=== PATIENT | male | born 1975 | race African-American/Black ===

== ENCOUNTER 2019-09-11 15:24 | Observation (INO) | payer OTHER, SELFPAY ==
[2019-09-11] VITALS (22 sets, daily range): BP systolic 124–168; BP diastolic 71–125; PULSE 77–121; RESP 12–22; TEMP 36.2–37.6; O2SAT 92–99; BMI 40.0
--- NOTE | ~2019-09-11 | XR_ITS ---
EXAMINATION: XR chest 2V DATE: 09/11/2019 17:00 INDICATION: Hypertension TECHNIQUE: PA and lateral views of the chest are obtained. COMPARISON: None available FINDINGS: The lung volumes are low. No acute airspace opacities are identified. There is no pleural e ffusion or pneumothorax. The cardiomediastinal silhouette is normal. There is mild thoracic spondylos is. IMPRESSION: 1. No acute cardiopulmonary abnormality. Reviewed, dictated and finalized at location A.
[2019-09-11 15:44] LABS: Glucose Point of Care > 500 (65-105)
[2019-09-11 15:44] LABS: Glucose Point of Care > 500 (65-105)
--- NOTE | 2019-09-11 15:45 | ECG_ITS ---
Measurements Intervals [place] Rate: 110 P: 60 MT: 160 QRS: 16 QRSD: 86 T: 7 QT: 299 QTc: 405 Interpretive Statements SINUS TACHYCARDIA DELAYED PRECORDIAL R/S TRANSITION ABNORMAL ECG Electronically Signed On 09-11-2019 16:40:42 CDT by Woody Newton D.O.
[2019-09-11 15:55] LABS: Basophils Absolute Auto 0.1 K/mm3 (0.0-0.1); Basophils Percent Auto 0.8 % (0.2-1.2); Eosinophils Absolute Auto 0.1 K/mm3 (0-0.3); Eosinophils Percent Auto 1.7 % (0-4.4); Hematocrit 46.4 % (42.0-52.0); Hemoglobin 15.9 g/dL (14.0-18.0); Immature Granulocyte Absolute 0.04 K/mm3 (0.00-0.031); Immature Granulocyte Percent A 0.6 % (0-0.5); Lymphocytes Absolute Auto 1.91 K/mm3 (0.9-3.2); Lymphocytes Percent Auto 30.2 % (18.3-44.2); Mean Corpuscular HGB Conc 34.3 g/dl (32-36); Mean Corpuscular Hemoglobin 28.5 pg (26-34); Mean Corpuscular Volume 83.2 fl (80-100); Mean Platelet Volume 12.1 fl (7.4-10.4); Monocytes Absolute Auto 0.5 K/mm3 (0.1-0.6); Monocytes Percent Auto 7.7 % (2.6-8.5); Neutrophils Absolute Auto 3.7 K/mm3 (1.3-6.7); Platelet Count Result 276 k/mm3 (150-375); Red Blood Count 5.58 M/mm3 (4.6-6.20); Red Cell Distribution Width 13.7 % (11.5-14.5); White Blood Count 6.3 K/mm3 (4.5-10.0)
[2019-09-11 16:14] LABS: Beta-Hydroxybutyrate/Acetoacetate 1.16 mmol/L (0.02-0.27)
[2019-09-11 16:16] LABS: Add Urine Microscopic? YES; Appearance Urine Clear (Clear); Bilirubin Urine Negative (Negative); Blood Urine Negative (Negative); Color Urine Colorless (Yellow); Glucose Urine UA 3+ mg/dL (Negative); Ketones Urine 1+ mg/dL (Negative); Leukocyte Esterase Ur Negative LEU/UL (Negative); Mucus Urine Rare /lpf; Nitrate Urine Negative (Negative); Protein Urine Negative (Negative); RBC Urine 0-2 /hpf (0-2); Squamous Epithelial Cell Urine Rare /hpf (Few); Urobilinogen Urine Negative mg/dL (<2.0); WBC Urine 0-3 /hpf
[2019-09-11 16:18] LABS: Alanine Aminotransferase 174 U/L (4-50); Albumin Level 4.6 g/dL (3.5-5.1); Alkaline Phosphatase 111 U/L (38-126); Aspartate Amino Transferase 49 U/L (17-59); Bilirubin,Total 0.8 mg/dL (0.2-1.3); Blood Urea Nitrogen 20 mg/dL (9-20); Calcium 9.4 mg/dL (8.4-10.2); Carbon Dioxide 22 mmol/L (22-30); Chloride 95 mmol/L (98-107); Estimated CRCL calculation 108 ml/min; Estimated Glomerular Filt Rate > 60; Glucose 661 mg/dL (75-110); Phosphorus 3.9 mg/dL (2.5-4.5); Potassium 4.9 mmol/L (3.4-5.0); Sodium 129 mmol/L (137-145)
[2019-09-11 16:18] LABS: Specific Grav Ur 1.033 (1.001-1.035)
--- NOTE | 2019-09-11 16:22 | PC.NURSE ---
EDP aware of Pt. critically high blood glucose. Per EDP via verbal order readback give Pt. 1L of normal saline at 999mls/hr for high blood glucose and tachycardia.
[2019-09-11] MEDS: SODIUM CHLORIDE 0.9% IV 1,000 ML 999 ML (16:24)
--- NOTE | 2019-09-11 16:39 | ED.GENADULT ---
HPI - General Adult General Chief complaint: Recheck/Abnormal Lab/Rx Stated complaint: weakness, not feeling well for 2 weeks Time Seen by Provider: 09/11/19 16:22 Source: patient Mode of arrival: ambulatory Limitations: no limitations History of Present Illness HPI narrative: This patient is a 44 year old male with history of hypertension who presents for evaluation of fatigue. His states 2- 3 weeks ago he fell into [facility] and he may have aspirated some water. He was evaluated at the [facility] and he was placed on steroids for aspiration. He states he has not felt well since then. His states he developed sore throat and thrush. He was started on nystatin and his thrush/sore throat have improved. His states then he noticed that he was feeling more fatigue. He was tested for COVID on Sunday and he was found to be negative yesterday. He was started on a z sonja and he initially felt better . Today while he was in store walking around he states he just has no energy. He feels lightheaded. He also reports increased thirst and frequent urination. He has nausea but no chest pain, abodminal pain , vomiting or diarrhea. Related Data Home Medications Medication Instructions Recorded Confirmed alendronate-vitamin D3 tablet PO 09/11/19 amlodipine 5 mg PO DAILY 09/11/19 bupropion HCl 100 mg PO BID 09/11/19 cetirizine [Zyrtec] 10 mg PO DAILY 09/11/19 famotidine [Pepcid] 20 mg PO BID 09/11/19 trazodone 100 mg PO HS 09/11/19 Allergies Allergy/AdvReac Type Severity Reaction Status Date / Time No Known Allergies Allergy Verified 09/11/19 16:06 Review of Systems Review of Systems: All systems reviewed & are unremarkable except as noted in HPI and below Constitutional: Constitutional: Denies chills, Denies fever(s) and Reports weakness ENT: Reports dizziness and Reports sore throat Cardiovascular: Cardiovascular: Denies chest pain and Denies radiating jaw, neck or arm pain Respiratory: Respiratory: Reports cough, Denies dyspnea and Denies wheezing Gastrointestinal: Gastrointestinal: Denies abdominal pain, Denies diarrhea and Denies vomiting Genitourinary: Genitourinary: Reports urinary frequency Neurologic: Reports weakness Endocrine: Endocrine: Reports polydipsia and Reports polyuria PMFSH Past Medical History Medical History (Updated 09/11/19 @ 19:19 by Arabella Rock MD) Hypertension Sleep apnea Surgical History Surgical History (Updated 09/11/19 @ 16:40 by Arabella Rock MD) No pertinent past surgical history Social History Social History (Updated 09/11/19 @ 16:41 by Arabella Rock MD) Smoking status: Never smoker Living arrangements: with family Occupation/Education: occupation 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 HEAD: Normocephalic, atraumatic EYES: PERRLA and EOMI, conjunctiva clear without discharge EARS: TM's clear bilaterally without erythema or dullness NOSE: Nares clear, no rhinorrhea or epistaxis THROAT:Mucous membranes moist, Oropharynx normal without erythema, exudate, peritonsillar swelling or fluctuance, edematous uvula NECK: Supple, without lymphadenopathy or mass RESPIRATORY: No respiratory distress, Airway patent, Respirations non-labored, Clear to auscultation without rales, rhonchi or wheeze HEART: tachycardia with regular rhythm No murmur heard. Normal peripheral pulses. ABDOMEN: Soft, nontender, nondistended, normal active bowel sounds. No masses. No rebound or guarding, No organomegaly. EXTREMITIES: No edema, normal strength with full range of motion. SKIN: Warm, dry, normal color without rash NEURO: Alert and oriented x3. CN 2-12 grossly intact. No focal deficits. PSYCH: Normal mood and affect. Course Consultations Consultati
[2019-09-11 17:14] LABS: Alveolar/Arterial O2 Gradient 31.9 mmHg; Fractional Inspired Oxygen 21 %; HCO3 ABG 20.7 mEq/l (22.0-26.0); Oxygen Content ABG 20.6 %vol (16.0-22.0); Oxygen Saturation ABG 94.4 % (95.0-100.0); Oxyhemoglobin 93.3 % THb (90.0-100.0); PO2 ABG 73.5 mmHg (80.0-100.0); Total Hemoglobin 15.7 g/dL (12.0-18.0); pH ABG 7.366 (7.350-7.450)
[2019-09-11 17:15] LABS: Device ROOM AIR; Modified Allen's Test Pass; Site Drawn LEFT RADIAL
[2019-09-11] MEDS: SODIUM CHLORIDE 0.9% IV 1,000 ML 999 ML IV CONT (17:30)
[2019-09-11] MEDS: INSULIN HUMAN REGULAR (*BKC) 100 UNITS/ML 10 UNITS SUB-Q (17:47)
[2019-09-11 18:06] LABS: Glucose Point of Care 389 (65-105)
[2019-09-11 18:54] LABS: Glucose Point of Care 396 (65-105)
--- NOTE | 2019-09-11 19:41 | PC.NURSE ---
disposition note made by Javi was made in error; report was called at that time; inpt. room was not clean, pt. leaving dept. at this time.
[2019-09-11 20:11] LABS: Glucose Point of Care 371 (65-105)
[2019-09-11] MEDS: FAMOTIDINE 20 MG/2 ML VIAL IV PUSH (20:14)
[2019-09-11] MEDS: SODIUM CHLORIDE 0.9% IV 1,000 ML 125 ML IV CONT (20:15)
--- NOTE | 2019-09-11 20:42 | ADMIMU ---
This patient, Harsh Taylor Jr., was admitted to IMU status, and placed in IMU Room 200-01 on 09/11/19 at 1955. Patient/family oriented to hospital policies and general routines including ID bracelet, bed and alarms, visiting hours, pain management, procedures, bathroom and other care routines, personal items, smoking policy, room service/diet, and visiting hours. Valuables list has been completed. Information on how to activate the Rapid Response Team has been discussed. Patient/Family are encouraged to report perceived risks to care and to ask questions if they do not understand what they are told or what they should do.
[2019-09-11 21:33] LABS: Glucose Point of Care 295 (65-105)
[2019-09-11] MEDS: INSULIN GLARGINE (*BKC) 100 UNITS/ML 10 UNITS SUB-Q (21:33)
--- NOTE | 2019-09-11 21:34 | PM.IMHP ---
H&P: HPI History of Present Illness Chief complaint: hyperglycemia/dehydration Narrative: This is a pleasant 44 year old male with known HTN who presented to the hospital today with a complaint of fatigue and generalized weakness. The patient has had increased thirst, urination, and hunger over the past two weeks. The patient was recently on antibiotics and steroids after he had went into a [facility] about 3 weeks ago and aspirated some water. He developed thrush and a sore throat afterwards. He was recently tested for COVID this past week and was found to be negative. The patient was also treated with nystatin and his thrush has resolved. Today when he got back from the grocery store with this , he was so tired that he told her he simply wanted to come to the hospital. He states that his respiratory symptoms and URI symptoms have completely resolved. In the ER tonight the patient was found to have a blood glucose of 661 mg/dl. He did not have an elevated anion gap. The patient admits to me that he has had an increase in weight over the past year which he attributes to working and not exercising or eating right. Tonight he denies any other symptoms such as fever, cough, shortness of breath, headache, blurry vision, chest pain, abdominal pain, dysuria, hematuria, nausea, vomiting, diarrhea, or rectal bleeding. Review of Systems Review of Systems: All systems reviewed & are unremarkable except as noted in HPI and below PMFSH Past Medical History Medical History (Updated 09/11/19 @ 21:51 by Magdiel Jackson MD) Hypertension Sleep apnea Surgical History Surgical History (Updated 09/11/19 @ 21:53 by Magdiel Jackson MD) Hx of chest tube placement No pertinent past surgical history Family History Family History Father Chronic obstructive pulmonary disease Mother Hypertension Diabetes mellitus Social History Social History Smoking status: Light tobacco smoker Tobacco type: cigars Second hand tobacco smoke exposure: Yes Additional smoking assessment comments: 1-2 a week but not consistant Alcohol intake: never Substance use: never Substance use type: does not use Living arrangements: with family Occupation/Education: occupation 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 Gender identity (if verbalized by the patient): Male Spiritual care concerns: No Meds Home Medications and Allergies Home Medications Medication Instructions Recorded Confirmed Type alendronate-vitamin D3 1 tablet PO WEEKLY 09/11/19 09/11/19 History amlodipine 5 mg PO DAILY 09/11/19 09/11/19 History bupropion HCl 100 mg PO DAILY 09/11/19 09/11/19 History cetirizine [Zyrtec] 10 mg PO DAILY 09/11/19 09/11/19 History famotidine [Pepcid] 20 mg PO BID 09/11/19 09/11/19 History Allergies Allergy/AdvReac Type Severity Reaction Status Date / Time No Known Allergies Allergy Verified 09/11/19 16:06 Vital Signs Vital Signs - 24 hr 09/11/19 15:37 09/11/19 15:40 09/11/19 15:45 Temperature 37.6 C Pulse Rate 114 H 110 H 112 H Respiratory Rate 20 20 12 Blood Pressure 168/111 H Pulse Oximetry 97 98 93 09/11/19 15:54 09/11/19 16:04 09/11/19 16:15 Temperature Pulse Rate 111 H 121 H Respiratory Rate 20 16 12 Blood Pressure Pulse Oximetry 99 98 94 09/11/19 16:40 09/11/19 17:04 09/11/19 17:26 Temperature Pulse Rate 109 H 103 H 98 Respiratory Rate 15 13 14 Blood Pressure Pulse Oximetry 95 98 97 09/11/19 17:30 09/11/19 17:51 09/11/19 18:00 Temperature Pulse Rate 97 104 H 97 Respiratory Rate 15 21 H 17 Blood Pressure Pulse Oximetry 98 97 96 09/11/19 18:01 09/11/19 18:27 09/11/19 18:42 Temperature Pulse Rate 97 96 Respiratory Rate 14 14 Blood Pressure 139/125 H Pulse Oximetry 94 96 09/11/19 18:45 09/11/19 20:00 Temperature 36.9
[2019-09-11] MEDS: INSULIN ASPART (*BKC) 100 UNITS/ML SUB-Q (21:47)
[2019-09-11 23:58] LABS: Glucose Point of Care 374 (65-105)
[2019-09-12] VITALS (9 sets, daily range): BP systolic 131–140; BP diastolic 84–94; PULSE 79–102; RESP 16–21; TEMP 35.7–36.4; O2SAT 97–100
[2019-09-12 04:55] LABS: Basophils Absolute Auto 0.1 K/mm3 (0.0-0.1); Basophils Percent Auto 0.9 % (0.2-1.2); Eosinophils Absolute Auto 0.1 K/mm3 (0-0.3); Eosinophils Percent Auto 2.5 % (0-4.4); Hematocrit 42.2 % (42.0-52.0); Hemoglobin 14.2 g/dL (14.0-18.0); Immature Granulocyte Absolute 0.03 K/mm3 (0.00-0.031); Immature Granulocyte Percent A 0.6 % (0-0.5); Lymphocytes Absolute Auto 2.22 K/mm3 (0.9-3.2); Lymphocytes Percent Auto 41.9 % (18.3-44.2); Mean Corpuscular HGB Conc 33.6 g/dl (32-36); Mean Corpuscular Volume 83.2 fl (80-100); Monocytes Absolute Auto 0.4 K/mm3 (0.1-0.6); Monocytes Percent Auto 8.1 % (2.6-8.5); Neutrophils Absolute Auto 2.4 K/mm3 (1.3-6.7); Platelet Count Result 245 k/mm3 (150-375); Red Blood Count 5.07 M/mm3 (4.6-6.20); Red Cell Distribution Width 13.6 % (11.5-14.5); White Blood Count 5.3 K/mm3 (4.5-10.0)
[2019-09-12 05:05] LABS: Hemoglobin A1C 12.8 % (<5.7)
[2019-09-12 05:10] LABS: Alanine Aminotransferase 158 U/L (4-50); Albumin Level 3.9 g/dL (3.5-5.1); Alkaline Phosphatase 85 U/L (38-126); Aspartate Amino Transferase 63 U/L (17-59); Bilirubin,Total 0.8 mg/dL (0.2-1.3); Blood Urea Nitrogen 16 mg/dL (9-20); Calcium 8.6 mg/dL (8.4-10.2); Carbon Dioxide 24 mmol/L (22-30); Chloride 106 mmol/L (98-107); Estimated CRCL calculation 122 ml/min; Estimated Glomerular Filt Rate > 60; Glucose 304 mg/dL (75-110); Sodium 137 mmol/L (137-145)
[2019-09-12 08:08] LABS: Glucose Point of Care 373 (65-105)
[2019-09-12] MEDS: INSULIN ASPART (*BKC) 100 UNITS/ML SUB-Q ×3 (08:10→16:17)
[2019-09-12] MEDS: FAMOTIDINE 20 MG/2 ML VIAL IV PUSH ×2 (08:11→20:53)
[2019-09-12] MEDS: LORATADINE 10 MG TABLET PO (08:11)
[2019-09-12] MEDS: buPROPion HCL 100 MG TABLET PO (08:11)
[2019-09-12] MEDS: AMLODIPINE BESYLATE 5 MG TABLET PO (08:11)
[2019-09-12 12:11] LABS: Glucose Point of Care 351 (65-105)
--- NOTE | 2019-09-12 12:30 | PC.NURSE ---
This patient, Harsh Taylor Jr., was transferred to [facility] on 09/12/19 at 1229. Personal belongings sent with patient.Report given to oNe. Appropriate documentation sent with patient.
--- NOTE | 2019-09-12 12:53 | PC.NURSE ---
This patient, Harsh Taylor , was received from IMU 200/01 on 09/12/19 at 1253. Personal belongings list checked and signed. Patient/family oriented to unit policies and routines
--- NOTE | 2019-09-12 15:59 | PM.IMPN ---
Progress Note: A&P Assessment and Plan (1) Acute hyperglycemia: Code(s): R73.9 - Hyperglycemia, unspecified Status: Acute Assessment and Plan: r/o New Onset diabetes mellitus - Accuchecks, SSI Coverage, Hypoglycemic protocol. Check HgbA1c. Diabetes eductator. (2) Acute dehydration: Code(s): E86.0 - Dehydration Status: Resolved Assessment and Plan: Can stop fluids, his creatinine has corrected. (3) Hyponatremia: Code(s): E87.1 - Hypo-osmolality and hyponatremia Status: Acute Assessment and Plan: Likely pseudohyponatremia from hyperglycemia. (4) H/O: HTN (hypertension): Code(s): Z86.79 - Personal history of other diseases of the circulatory system Status: Chronic Assessment and Plan: stable. Monitor blood pressure. Continue amlodipine. (5) Morbid obesity: Code(s): E66.01 - Morbid (severe) obesity due to excess calories Status: Chronic Assessment and Plan: Emphasised healthy lifestyle choices and weight loss benefits. (6) Depression: Qualifiers: Depression Type: unspecified Qualified Code(s): F32.9 - Major depressive disorder, single episode, unspecified Code(s): F32.9 - Major depressive disorder, single episode, unspecified Status: Chronic Assessment and Plan: Continue bupropion. Additional Plan Subjective Date/time seen: 09/12/19 15:59 Interval history: 4 year old male with known HTN who presented to the hospital today with a complaint of fatigue and generalized weakness. The patient has had increased thirst, urination, and hunger over the past two weeks. Pts sugars are high on admission 661, pts HBaic is 12. Long discussion about DM. And control of DM with diet exercise and insulin. Pt is agreement. Pt states he used to give his relative insulin so he is aware how to adminster insulin. Review of Systems Review of Systems: All systems reviewed & are unremarkable except as noted in HPI and below Constitutional: Constitutional: Reports fatigue and Reports lethargy Eyes: Eyes: Denies blurry vision Cardiovascular: Comments: increased thirst Respiratory: Respiratory: Denies dyspnea Gastrointestinal: Gastrointestinal: Denies no additional gastrointestinal complaints Genitourinary: Genitourinary: Reports urinary frequency Musculoskeletal: Musculoskeletal: Denies no additional musculoskeletal complaints Exam Const: General: cooperative, no acute distress, alert and awake Nutritional Appearance: obese morbidly obese Orientation/consciousness: patient oriented x3 Resp: Effort & Inspection: normal respiratory effort Auscultation: clear to auscultation bilaterally Cardio: Rate: regular rate Rhythm: regular rhythm Heart sounds: no murmurs GI: Inspection: normal to inspection Auscultation: normal bowel sounds Skin: General skin exam: normal color and no rashes or lesions noted Neuro: General: patient oriented x3 Cranial nerves: Yes CN's II-XII intact bilaterally and Yes Equal, round and reactive pupils present Speech: normal speech Motor exam (neuro): 5/5 motor strength present throughout Sensory Exam: normal sensation Extrem: General: normal to inspection and no edema Psych: Mental Status: mental status grossly normal Affect: normal affect Objective Data Vital Signs Vital Signs: Vital Signs - 24 hr 09/11/19 16:04 09/11/19 16:15 09/11/19 16:40 Temperature Pulse Rate 111 H 121 H 109 H Respiratory Rate 16 12 15 Blood Pressure Pulse Oximetry 98 94 95 09/11/19 17:04 09/11/19 17:26 09/11/19 17:30 Temperature Pulse Rate 103 H 98 97 Respiratory Rate 13 14 15 Blood Pressure Pulse Oximetry 98 97 98 09/11/19 17:51 09/11/19 18:00 09/11/19 18:01 Temperature Pulse Rate 104 H 97 Respiratory Rate 21 H 17 Blood Pressure 139/125 H Pulse Oximetry 97 96 09/11/19 18:27 09/11/19 18:42 09/11/19 18:45 Temperature
[2019-09-12 16:10] LABS: Glucose Point of Care 313 (65-105)
[2019-09-12 23:22] LABS: Glucose Point of Care 317 (65-105)
[2019-09-13 06:00] VITALS: BP 159/94; PULSE 84; RESP 20; TEMP 36.7; O2SAT 99
[2019-09-13 07:59] LABS: Glucose Point of Care 255 (65-105)
[2019-09-13] MEDS: INSULIN ASPART (*BKC) 100 UNITS/ML SUB-Q (08:20)
[2019-09-13] MEDS: FAMOTIDINE 20 MG/2 ML VIAL IV PUSH (08:23)
[2019-09-13] MEDS: LORATADINE 10 MG TABLET PO (08:23)
[2019-09-13] MEDS: AMLODIPINE BESYLATE 5 MG TABLET PO (08:23)
[2019-09-13] MEDS: buPROPion HCL 100 MG TABLET PO (08:23)
--- NOTE | 2019-09-13 08:44 | PM.DS ---
DS: Admitting Diagnosis Admitting Diagnosis Admitting Diagnosis: Hyperglycemia, unspecified DS: Discharge Diagnosis Discharge Diagnosis (1) Acute hyperglycemia: Code(s): R73.9 - Hyperglycemia, unspecified Status: Acute Assessment and Plan: r/o New Onset diabetes mellitus - Accuchecks, SSI Coverage, DM education insuloin adminstration, accuchecks monitoring pt switched to lispro as it is better covered by his insurance 6 units tid with meals. pt asked for a sick note left with out receiving it, if he needs it he can have two weeks off work from 09/11- 09/25. (2) Acute dehydration: Code(s): E86.0 - Dehydration Status: Resolved Assessment and Plan: Can stop fluids, his creatinine has corrected. (3) Hyponatremia: Code(s): E87.1 - Hypo-osmolality and hyponatremia Status: Acute Assessment and Plan: Likely pseudohyponatremia from hyperglycemia. (4) H/O: HTN (hypertension): Code(s): Z86.79 - Personal history of other diseases of the circulatory system Status: Chronic Assessment and Plan: stable. Monitor blood pressure. Continue amlodipine. (5) Morbid obesity: Code(s): E66.01 - Morbid (severe) obesity due to excess calories Status: Chronic Assessment and Plan: Emphasised healthy lifestyle choices and weight loss benefits. (6) Depression: Qualifiers: Depression Type: unspecified Qualified Code(s): F32.9 - Major depressive disorder, single episode, unspecified Code(s): F32.9 - Major depressive disorder, single episode, unspecified Status: Chronic Assessment and Plan: Continue bupropion. DS: Summary Time Spent with Patient Time attestation: Total time spent providing and/or coordinating discharge services:40 minutes on day of dischrage Exam Const: General: cooperative, no acute distress, alert and awake Nutritional Appearance: obese morbidly obese Orientation/consciousness: patient oriented x3 Resp: Effort & Inspection: normal respiratory effort Auscultation: clear to auscultation bilaterally Cardio: Rate: regular rate Rhythm: regular rhythm Heart sounds: no murmurs GI: Inspection: normal to inspection Auscultation: normal bowel sounds Skin: General skin exam: normal color and no rashes or lesions noted Neuro: General: patient oriented x3 Cranial nerves: Yes CN's II-XII intact bilaterally and Yes Equal, round and reactive pupils present Speech: normal speech Motor exam (neuro): 5/5 motor strength present throughout Sensory Exam: normal sensation Extrem: General: normal to inspection and no edema Psych: Mental Status: mental status grossly normal Affect: normal affect DS: Data Data Completed and Pending Labs on day of discharge: Labs from last 24 hours 09/13/19 09/12/19 09/12/19 07:53 20:51 16:05 POC Capillary Glucose 255 H 317 H 313 H 09/12/19 11:31 POC Capillary Glucose 351 H Discharge Plan Discharge Attending physician on discharge: Debbie Chiang Discharging Clinician: Debbie Chiang Anticipated Discharge Date/Time: 09/13/19 08:40 Patient Disposition: Home, Self-Care Activity: as tolerated Diet: diabetic Discharge Instructions: Diabetic diet sheet GLUCOMETER AND ACCUCHECK MONITORing DIET and exercise Insulin Administration Follow up [facility] jo[facility] COEL Patient Instructions: Antibiotic Form, Hypoglycemia in a Person with Diabetes (DC), Type 2 Diabetes in Adults: New Diagnosis (DC), Basic Carbohydrate Counting (DC) Stand Alone Forms: General Discharge Information Follow-up/Referrals: clarence cole [Other] Too,DANDRE Echeverria [Primary Care Provider] - Discharge Medications: New (DME) lancets [Accu-Chek Softclix Lancets] Misc See Rx Instructions .ROUTE .MEDSUPPLY Qty: 50 RF: 0 (DME) lancets [BD Ultra Fine Lancets] 33 gauge misc See Rx Instructions .ROUTE .MEDSUPPLY Qty:
[2019-09-13 09:19] LABS: Blood Urea Nitrogen 13 mg/dL (9-20); Calcium 8.6 mg/dL (8.4-10.2); Carbon Dioxide 25 mmol/L (22-30); Chloride 102 mmol/L (98-107); Estimated CRCL calculation 138 ml/min; Estimated Glomerular Filt Rate > 60; Glucose 305 mg/dL (75-110); Potassium 4.1 mmol/L (3.4-5.0); Sodium 135 mmol/L (137-145)
--- NOTE | 2019-09-13 14:36 | PC.NURSE ---
Pt called with problem having his prescriptions for Novolog, testing & administration supplies being filled by pharmacy. I spoke with the pharmacist re: the items. The transmitted script for supplies showed only a quantity of 1 for each item. Pharmacist instructed to provide supplies for 30 of each and substitute the Novolog with Lispro for [address] Chiang's order. Pharmacist confirmed that the insurance company would cover the cost of Lispro. Pt notified that he can strip picker his prescriptions now.l
== END 2019-09-13 12:12 | disposition home or self-care (01) ==
LOC: ANHED 18:10 → ANHIMU 18:57 → ANH2MED 09-12 12:30
PROVIDERS: Emergency Medicine; Family Medicine; Admitting Provider Family Medicine; Emergency Provider General Practice; PCP Nurse Practitioner Family; Visit Provider Family Medicine
DX: R73.9 Hyperglycemia, unspecified (principal); E86.0 Dehydration; E87.1 Hypo-osmolality and hyponatremia; I10 Essential (primary) hypertension; E66.01 Morbid (severe) obesity due to excess calories; Z68.41 Body mass index [BMI] 40.0-44.9, adult; F32.9 Major depressive disorder, single episode, unspecified; Z72.0 Tobacco use
CPT/HCPCS: 36415; 36600; 71046; 80048; 80053; 81001; 82010; 82805; 82948; 83036; 83735; 84100; 85025; 93005; 96361; 96374; 96376; 99285; A9270; G0378; G0379; J1815; J7030

== ENCOUNTER 2023-08-23 05:41 | Emergency (ER) | payer BC, MEDICAID, SELFPAY ==
[2023-08-23] VITALS (18 sets, daily range): BP systolic 140–240; BP diastolic 102–159; PULSE 62–90; RESP 17–33; TEMP 36.7; O2SAT 97–100
--- NOTE | ~2023-08-23 | CT_ITS ---
Non-contrast Head CT History: Headache, hypertension Technique: Axial non-contrast imaging of the brain was performed. Dose reduction technique was used on this scan by utilizing automated exposure control and iterative reconstruction technique. The dose -length product (DLP) was 681.00 mGy-cm. Findings: There is no evidence of intracranial hemorrhage, mass lesion, or acute infarct. Brain par enchyma appears normal. The ventricles and subarachnoid spaces are normal in size. The calvarium ap pears normal. There is mild left maxillary and bilateral ethmoid sinus disease. The remaining visuali zed paranasal sinuses and mastoid air cells are clear. Impression: No intracranial abnormality seen. Sinus disease, as above. Reviewed, dictated and finalized at location . Impression: No intracranial abnormality seen. Sinus disease, as above.
--- NOTE | 2023-08-23 05:53 | ECG_ITS ---
Test Date: 2023-08-23 06:04:22 Measurements Intervals [place] Rate: 59 P: 37 SD: 188 QRS: 41 QRSD: 94 T: 43 QT: 431 QTc: 430 Interpretive Statements SINUS BRADYCARDIA MODERATE VOLTAGE CRITERIA FOR LVH, CONSIDER NORMAL VARIANT [MEETS CRITERIA IN ONE OF: R(aVL), S(V1), R(V5), R(V5/V6)+S(V1)] No previous ECG available for comparison Electronically Signed On 08-23-2023 12:43:55 CDT by Ehsan Pablo M.D.
[2023-08-23] MEDS: ONDANSETRON INJ 4 MG/2 ML VIAL IV PUSH (06:06)
[2023-08-23] MEDS: SODIUM CHLORIDE 0.9% IV 1,000 ML 999 ML IV CONT (06:06)
[2023-08-23 06:07] LABS: Basophils Absolute Auto 0.1 K/mm3 (0.0-0.1); Basophils Percent Auto 0.7 % (0.2-1.2); Eosinophils Absolute Auto 0.3 K/mm3 (0-0.3); Eosinophils Percent Auto 3.3 % (0-4.4); Hematocrit 42.1 % (42.0-52.0); Hemoglobin 14.5 g/dL (14.0-18.0); Immature Granulocyte Absolute 0.03 K/mm3 (0.00-0.031); Immature Granulocyte Percent A 0.4 % (0-0.5); Lymphocytes Absolute Auto 2.37 K/mm3 (0.9-3.2); Lymphocytes Percent Auto 28.9 % (18.3-44.2); Mean Corpuscular HGB Conc 34.4 g/dl (32-36); Mean Corpuscular Hemoglobin 28.4 pg (26-34); Mean Corpuscular Volume 82.5 fl (80-100); Mean Platelet Volume 10.1 fl (7.4-10.4); Monocytes Absolute Auto 0.6 K/mm3 (0.1-0.6); Monocytes Percent Auto 6.8 % (2.6-8.5); Neutrophils Absolute Auto 4.9 K/mm3 (1.3-6.7); Neutrophils Percent Auto 59.9 % (45.5-73.1); Platelet Count Result 321 k/mm3 (150-375); Red Cell Distribution Width 13.3 % (11.5-14.5); White Blood Count 8.2 K/mm3 (4.5-10.0)
[2023-08-23 06:16] LABS: Alanine Aminotransferase 15 U/L (6-50); Albumin Level 4.6 g/dL (3.5-5.1); Alkaline Phosphatase 77 U/L (38-126); Anion Gap 9 mmol/L (4-12); Aspartate Amino Transferase 21 U/L (17-59); Bilirubin,Total 0.9 mg/dL (0.2-1.3); Blood Urea Nitrogen 10 mg/dL (9-20); Calcium 9.3 mg/dL (8.4-10.2); Carbon Dioxide 24 mmol/L (22-30); Chloride 107 mmol/L (98-107); Estimated CRCL calculation 112 ml/min; Estimated Glomerular Filt Rate > 60; Glucose 166 mg/dL (65-110); Magnesium 1.9 mg/dL (1.6-2.3); Potassium 3.6 mmol/L (3.4-5.0); Sodium 140 mmol/L (137-145)
[2023-08-23] MEDS: hydrALAZINE HCL 20 MG/ML VIAL 10 MG IV PUSH (06:21)
--- NOTE | 2023-08-23 06:23 | PC.NURSE ---
After Zofran was given patient was less restless and presents A&Ox4. Patient denies HI/SI. Patient states he is actively trying to get help for substance abuse. Patient and friend at bedside state that patient last snorted sometime yesterday and his symptoms began around 0300 today. Patient c/o N/V, headache, and his abdomen hurting him. Patient and friend also states that patient has been non-compliant with his HTN medications and has not been checking his blood pressure.
--- NOTE | 2023-08-23 06:24 | ED.GENADULT ---
HPI - General Adult General Chief complaint: Unspecified <Jordan Reaves MD - Last Filed: 08/24/23 06:10> Stated complaint: withdrawing from fentanyl <Jordan Reaves MD - Last Filed: 08/24/23 06:10> Time Seen by Provider: 08/23/23 05:59 <Jordan Reaves MD - Last Filed: 08/24/23 06:10> History of Present Illness HPI narrative: Patient is a 48-year-old male who presents to the emergency department this morning complaining of concern for sentinel withdrawal. Patient states that he last snorted fentanyl around 3:00 p.m. in the afternoon yesterday and approximately 3 hours ago at 11:00 p.m. he started to develop some severe abdominal pain, nausea and vomiting. Patient is also complaining of a severe headache. Patient's blood pressure was noted to be 240/122 mmHg in the emergency department. Patient admits that he does have a history of high blood pressure and is supposed to be on a blood pressure medication but he is noncompliant with his medication. Significant other who is present at bedside states that he does not take his blood pressure medication and patient is not even sure what medication he was prescribed, she believes it may have been clonidine. Patient states that he has gone through opiate/sentinel withdrawn and the past and states that this feels similar. He has been admitted in the hospital for this in the past as well. <Jordan Reaves MD - Last Filed: 08/24/23 06:10> Related Data Home medications: Home Medications Medication Instructions Recorded Confirmed alendronate 70 mg-cholecalciferol 1 tablet PO WEEKLY 09/11/19 09/11/19 (vitamin D3) 2,800 unit tablet amlodipine 5 mg tablet 5 mg PO DAILY 09/11/19 09/11/19 bupropion HCl 100 mg tablet 100 mg PO DAILY 09/11/19 09/11/19 cetirizine 10 mg tablet (Zyrtec) 10 mg PO DAILY 09/11/19 09/11/19 famotidine 20 mg tablet (Pepcid) 20 mg PO BID 09/11/19 09/11/19 <Jordan Reaves MD - Last Filed: 08/24/23 06:10> Allergies/adverse reactions: Allergies Allergy/AdvReac Type Severity Reaction Status Date / Time No Known Allergies Allergy Verified 11/30/21 11:59 <Jordan Reaves MD - Last Filed: 08/24/23 06:10> Review of Systems Review of Systems: All systems are reviewed and are negative unless stated otherwise in the HPI. <Jordan Reaves MD - Last Filed: 08/24/23 06:10> PMFSH Past Medical History Medical History: Medical History Hypertension Sleep apnea <Jordan Reaves MD - Last Filed: 08/24/23 06:10> Surgical History Surgical History: Surgical History Hx of chest tube placement No pertinent past surgical history <Jordan Reaves MD - Last Filed: 08/24/23 06:10> Family History Family History: Family History Father Chronic obstructive pulmonary disease Mother Hypertension Diabetes mellitus <Jordan Reaves MD - Last Filed: 08/24/23 06:10> Social History Social History: Social History Smoking status: Light tobacco smoker Tobacco type: cigars Second hand tobacco smoke exposure: Yes Additional smoking assessment comments: 1-2 a week but not consistant Alcohol intake: never Substance use: never Substance use type: does not use Living arrangements: with family Occupation/Education: occupation 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 HEENT: PERRL, no rhinorrhea, no post nasal drip, oropharynx clear. Cardiovascular: Regular rate and rhythm, no murmurs, rubs or gallops, no
--- NOTE | 2023-08-23 06:33 | PC.NURSE ---
Patient refuses straight catheter for urine specimen.
[2023-08-23 06:42] LABS: Lipase 35 U/L (23-300)
[2023-08-23] MEDS: PROMETHAZINE HCL 25 MG/ML AMPUL 12.5 MG IV PUSH (06:48)
[2023-08-23] MEDS: KETOROLAC 15 MG/ML VIAL (*BKC) IV PUSH (07:32)
[2023-08-23] MEDS: cloNIDine HCL 0.1 MG TABLET 0.2 MG PO (07:44)
[2023-08-23] MEDS: LORazepam INJ (*CRX) 2 MG/ML VIAL 1 MG IV PUSH (07:55)
[2023-08-23] MEDS: LIDOCAINE 5% PATCH 1 PATCH TRANSDERM (08:11)
[2023-08-23 09:42] LABS: Appearance Urine Clear (Clear); Bilirubin Urine Negative (Negative); Blood Urine Negative (Negative); Color Urine Yellow (Yellow); Glucose Urine UA 1+ mg/dL (Negative); Ketones Urine Trace mg/dL (Negative); Leukocyte Esterase Ur Negative LEU/UL (Negative); Nitrate Urine Negative (Negative); Protein Urine Negative (Negative); Specific Grav Ur 1.016 (1.001-1.035); Urobilinogen Urine 0.2 mg/dL (<2.0)
[2023-08-23 10:01] LABS: Amphetamine Screen Urine Negative (Negative); Barbiturate Screen Urine Negative (Negative); Benzodiazepines Screen Urine Positive (Negative); Cannabinoid Screen Urine Negative (Negative); Cocaine Screen Urine Positive (Negative); Methadone Screen Urine Negative (Negative); Opiate Screen Urine Negative (Negative); Phencyclidine Screen Urine Negative (Negative)
[2023-08-23 10:04] LABS: Add Urine Microscopic? NO
--- NOTE | 2023-08-23 10:23 | PC.NURSE ---
Per Jane at [phone] pt can be discharged from our facility and be taken to [facility] for the detox center.
== END 2023-08-23 11:54 | disposition home or self-care (01) ==
PROVIDERS: Emergency Medicine; Emergency Provider Family Medicine; PCP Nurse Practitioner Family
DX: F11.23 Opioid dependence with withdrawal (principal); I10 Essential (primary) hypertension; Z91.148 Patient's other noncompliance with medication regimen for other reason
CPT/HCPCS: 36415; 70450; 80053; 80307; 81003; 83690; 83735; 85025; 93005; 96361; 96374; 96375; 99284; A9270; J0360; J1885; J2060; J2405; J2550; J7030

== ENCOUNTER 2024-01-21 16:15 | Emergency (ER) | payer BC, SELFPAY ==
[2024-01-21 16:20] VITALS: BP 176/102; PULSE 88; RESP 16; TEMP 36.4; O2SAT 98
--- NOTE | 2024-01-21 16:24 | ED_ITS ---
HPI - Ear Problem General Chief complaint: Ear Stated complaint: Ear Pain Time Seen by Provider: 01/21/24 16:17 Source: patient Mode of arrival: ambulatory Limitations: no limitations History of Present Illness HPI Narrative: Patient is a 48-year-old male that presents with left ear pain that is worsened over the last week. Patient started noticing decreased hearing a year ago and has been told few months back that he has large amounts of wax. Patient has been using Debrox with no relief. Denies any congestion, sore throat, cough, fever, chills. MD Complaint: ear pain Related Data Home Medications Medication Instructions Recorded Confirmed alendronate 70 mg-cholecalciferol 1 tablet PO WEEKLY 09/11/19 09/11/19 (vitamin D3) 2,800 unit tablet amlodipine 5 mg tablet 5 mg PO DAILY 09/11/19 09/11/19 bupropion HCl 100 mg tablet 100 mg PO DAILY 09/11/19 09/11/19 cetirizine 10 mg tablet (Zyrtec) 10 mg PO DAILY 09/11/19 09/11/19 famotidine 20 mg tablet (Pepcid) 20 mg PO BID 09/11/19 09/11/19 Allergies Allergy/AdvReac Type Severity Reaction Status Date / Time No Known Allergies Allergy Verified 01/21/24 16:43 Review of Systems Review of Systems: All systems reviewed & are unremarkable except as noted in HPI and below Constitutional: Constitutional: Denies body ache(s), Denies chills, Denies fever(s), Denies headache(s) and Denies malaise Eyes: Eyes: Denies blurry vision, Denies eye discharge and Denies irritation ENT: Reports otalgia, Denies headache(s), Denies nasal congestion, Denies nasal discharge and Denies sore throat Cardiovascular: Cardiovascular: Denies chest pain, Denies edema, Denies palpitations and Denies dyspnea on exertion Respiratory: Respiratory: Denies cough and Denies dyspnea on exertion Gastrointestinal: Gastrointestinal: Denies abdominal pain, Denies diarrhea, Denies nausea and Denies vomiting Musculoskeletal: Musculoskeletal: Denies back pain, Denies arthralgias and Denies muscle weakness Integumentary/Breasts: Skin/Breast: Denies pruritus and Denies rash Neurologic: Denies headache(s) Psychiatric: Psychiatric: Reports no additional psychiatric complaints Endocrine: Endocrine: Denies palpitations [facility] Past Medical History Medical History Hypertension Sleep apnea Surgical History Surgical History Hx of chest tube placement No pertinent past surgical history Family History Family History Father Chronic obstructive pulmonary disease Mother Hypertension Diabetes mellitus Social History Social History Smoking status: Light tobacco smoker Tobacco type: cigars Second hand tobacco smoke exposure: Yes Additional smoking assessment comments: 1-2 a week but not consistant Alcohol intake: never Substance use: never Substance use type: does not use Living arrangements: with family Occupation/Education: occupation 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 There is no relevant family history pertinent to the presenting complaint? Exam Const: General: cooperative, healthy appearing, no acute distress and well nourished Nutritional Appearance: well nourished Orientation/consciousness: patient oriented x3 Limitations: no limitations HENMT: Head: normal to inspection, normocephalic and atraumatic Ears: hearing grossly normal bilaterally, EAC's normal, no periauricular adenopathy and TM abnormal obstructed by cerumen bilateral Face/Nose/Sinus: Normal external nose present, Normal nares present, Normal nasal mucous membranes and turbinates present, No nasal discharge present, normal facial exam and sinuses nontender Face and sinus: normal facial exam and sinuses nontender Mouth: Yes Normal oral and palatal mucosa present, Yes lip normal, Yes tongue normal and Yes moist mucous membranes Throat: posterior oropharynx normal, tonsils normal and uvula midline Eyes: General: appearance normal, both eyes and all related structures Alignment and Position: alignment normal and position normal Eyelids: eyelids normal Pupils: Equal, round and reactive pupils present EOM: EOMs intact bilaterally Neck: Neck: normal visual inspection, full ROM, no lymphadenopathy and supple Chest: Chest palpation & inspection: normal inspection of the chest Resp: Effort & Inspection: normal respiratory effort and able to speak in complete sentences Auscultation: clear to auscultation bilaterally, no crackles, no rales, no rhonchi and no wheezes Cardio: Rate: regular rate Rhythm: regular rhythm Heart sounds: S1 normal heart sound present and S2 normal heart sound present Skin: General skin exam: normal color and no rashes or lesions noted Neuro: General: patient oriented x3 and moves all extremities Cranial nerves: Yes Equal, round and reactive pupils present Cognition (Neuro): normal cognition Speech: normal speech Gait exam (Neuro): Normal gait present Extrem: General: normal to inspection and full ROM Psych: Appearance: grossly normal and well kempt Mental Status: mental status grossly normal Speech and movement: Normal speech and movement present Course Course Emergency Course: Patient is aware of diagnosis, understands and agrees to treatment plan.? Anticipatory guidance given.? Patient agrees to follow-up as directed and is aware of reasons to seek care at the emergency department.? Portions of this record may have been created with voice recognition software? Level of Care: Express Care Visit Vital Signs Vital signs: Reviewed Procedures Ear Wax Removal Both Ears: Ear Wax Removal Date: 01/21/24 Ear Wax Removal Time: 17:00 Results: Re-examined: cerumen removed completely TM Examination: TM(s) intact, normal appearance Ear Canal Exam: atraumatic and other (Erythema and edema) Patient Tolerated Procedure: well and no complications Complications: no problems Technique: ear canal irrigated and ear canal curetted Additional Comments: Procedure explained to patient, verbal consent obtained. Large amounts of wax removed. Patient reports media relief of symptoms and ability to hear normally. Medical Decision Making MDM Narrative Medical decision making narrative: Discharge instructions reviewed with patient, as well as provided in writing per nursing staff. The instructions also include specific and strict return/GO TO THE ER as well as f/u information. All questions have been answered, and the patient deny any further questions with discharge and discharge plan. Differential diagnosis considered: Marcos virus, strep pharyngitis, allergic rhinitis, upper respiratory tract infection, sinusitis, rhinosinusitis, nasopharyngitis. viral pharyngitis, otitis media, otitis externa, otitis effusion, foreign body, cerumen impaction, viral syndrome, and influenza.? Exam findings show no acute concerns or changes; patient is non-toxic appearing and is in no distress.? Patient is appropriate for outpatient treatment and follow- up.? Medical Records Medical records reviewed: Yes I reviewed the external patient's medical records. Discharge Plan Discharge Clinical Impression: Otitis externa Qualifiers: Otitis externa type: unspecified type Chronicity: acute Laterality: bilateral Qualified Code(s): H60.503 - Unspecified acute noninfective otitis externa, bilateral Cerumen impaction Qualifiers: Laterality: bilateral Qualified Code(s): H61.23 - Impacted cerumen, bilateral Patient Disposition: Home, Self-Care Condition: Stable Instructions: Carbamide Peroxide (Into the ear), Swimmer's Ear (ED) Additional Instructions: -Ear drops as directed for 7-10 days until the pain and swelling are gone. -When administer drug into the affected ear; make sure to lay down with the affected ear facing upward, message the ear canal to help the drops reach the medial end of the canal, then remain in that position for at least 5 minutes. -Avoid using cotton tipped applicator for ears cleaning -Avoid exposing swimming or exposing the affected ear to water during the treatment period Take or alternate tylenol or ibuprofen every 4 - 6 hours if needed for pain. Follow up with primary care provider if condition is not improving in 7 days or sooner if there is new concern. Your blood pressure was elevated above 120/80 today at Urgent Care. This puts you above the threshold for follow up visit with a primary care provider. High blood pressure does not usually cause any symptoms, however it may lead to kidney failure, stroke, heart disease just to name a few if untreated . Many people are anxious when seeing a provider or nurse. As a result, you are not diagnosed with hypertension at this time unless your blood pressure is persistently high at two office visits at least one week apart. Some things that can help lower blood pressure are lifestyle modifications, such as light exercise, decreased salt in diet, and weight loss. It is important to follow up with a PCP about this within 1 week. Prescriptions: New ofloxacin 0.3 % drops 5 drp EACH EAR Q12H 7 Days Qty: 10 0RF No Action cetirizine [Zyrtec] 10 mg Tablet 10 mg PO DAILY amlodipine 5 mg Tablet 5 mg PO DAILY bupropion HCl 100 mg Tablet 100 mg PO DAILY famotidine [Pepcid] 20 mg Tablet 20 mg PO BID alendronate-vitamin D3 70 mg- 2,800 unit Tablet 1 tablet PO WEEKLY Rx Instructions: on sunday (DME) lancets [Accu-Chek Softclix Lancets] Misc See Rx Instructions .ROUTE .MEDSUPPLY Qty: 50 0RF Rx Instructions: As directed (DME) lancets [BD Ultra Fine Lancets] 33 gauge misc See Rx Instructions .ROUTE .MEDSUPPLY Qty: 100 0RF Rx Instructions: As directed (DME) OneTouch Verio test strips Strip Qty: 10 9RF Rx Instructions: As Directed (DME) insulin syringe-needle U-100 [BD Insulin Syringe] 1 mL 29 gauge x 1/2 Syringe Qty: 1 0RF Rx Instructions: As Directed insulin aspart U-100 [Novolog U-100 Insulin aspart] 100 unit/mL Solution 6 unit SUBCUT TIDWM Qty: 10 0RF (DME) insulin syringes (disposable) 1 mL syringe See Rx Instructions .ROUTE .MEDSUPPLY Qty: 500 0RF Rx Instructions: As directed Follow-up/Referrals: PHYSICIAN,PULL OUT OPERATOR [Primary Care Provider] - Sal Ford MD [Physician] - 3 Days ([facility]) Time of Disposition: 17:12
== END 2024-01-21 17:15 | disposition home or self-care (01) ==
PROVIDERS: Emergency Provider Nurse Practitioner Family
DX: H60.503 Unspecified acute noninfective otitis externa, bilateral (principal); H61.23 Impacted cerumen, bilateral; F17.290 Nicotine dependence, other tobacco product, uncomplicated; I10 Essential (primary) hypertension
CPT/HCPCS: 69210; 99213; G0463

== ENCOUNTER 2024-09-03 16:02 | Emergency (ER) | payer OTHER, SELFPAY ==
[2024-09-03 16:21] VITALS: BP 158/108; PULSE 79; RESP 16; TEMP 36.4; O2SAT 99
[2024-09-03 16:33] LABS: Glucose Point of Care 355 mg/dl (65-105)
[2024-09-03 17:21] LABS: EDUAAPPEAR Clear; EDUABILI Negative (Negative); EDUABLOOD Trace (Negative); EDUACOLOR1 Yellow; EDUAGLUCOSE 2+ (Negative); EDUAKETONE Negative (Negative); EDUALEUKO Negative (Negative); EDUANITRATE Negative (Negative); EDUAPROTEIN 1+ (Negative)
--- NOTE | 2024-09-03 17:22 | ED.GENADULT ---
HPI - General Adult General Chief complaint: Unspecified Stated complaint: frequently urinating / fatigue Time Seen by Provider: 09/03/24 16:35 Source: patient and RN notes reviewed Mode of arrival: ambulatory Limitations: no limitations History of Present Illness HPI narrative: 49-year-old male presents Express Care with significant other complaining of weakness and frequent urination over the last 3 weeks. Patient has a history of type 2 diabetes is insulin dependent. Patient has not seen a PCP in a year has not used insulin over the last year. Patient states over the last 3 weeks he has noticed he has had increased polydipsia, polyphagia, polyuria, and weakness. Denies any abdominal pain, confusion, nausea, vomiting, diarrhea, or any other symptoms. Patient does not take any other diabetic medications. Related Data Home Medications ?Medication ?Instructions ?Recorded ?Confirmed ?Last Taken ?Type alendronate 70 mg-cholecalciferol 1 tablet PO WEEKLY 09/11/19 09/11/19 09/10/19 History (vitamin D3) 2,800 unit tablet amlodipine 5 mg tablet 5 mg PO DAILY 09/11/19 09/11/19 09/11/19 History bupropion HCl 100 mg tablet 100 mg PO DAILY 09/11/19 09/11/19 09/11/19 History cetirizine 10 mg tablet (Zyrtec) 10 mg PO DAILY 09/11/19 09/11/19 09/11/19 History famotidine 20 mg tablet (Pepcid) 20 mg PO BID 09/11/19 09/11/19 09/11/19 History Allergies Allergy/AdvReac Type Severity Reaction Status Date / Time No Known Allergies Allergy Verified 09/03/24 16:13 Review of Systems Review of Systems: CONSTITUTIONAL: Denies fever, chills, or sweats. EYES: Denies visual changes, redness, or discharge. ENT: Denies rhinorrhea, congestion, sore throat, or otalgia. CARDIOVASCULAR: Denies chest pain, palpitations, or edema. RESPIRATORY: Denies cough or dyspnea. GASTROINTESTINAL: Denies abdominal pain, nausea, vomiting, or diarrhea. Positive for Polyphagia and polydipsia. GENITOURINARY: Denies dysuria or hematuria. Positive for Polyuria. SKIN: Denies rash or itching. MUSCULOSKELETAL: Denies back pain, joint pain, or myalgia. NEUROLOGIC: Denies headache, numbness. Positive for weakness. PSYCHIATRIC: Denies anxiety or depression. All other systems reviewed are negative, except as documented in HPI. [facility] Past Medical History Medical History Sleep apnea Hypertension Surgical History Surgical History Hx of chest tube placement No pertinent past surgical history Family History Family History Father Chronic obstructive pulmonary disease Mother Hypertension Diabetes mellitus Social History Social History Smoking status: Light tobacco smoker Tobacco type: cigars Second hand tobacco smoke exposure: Yes Additional smoking assessment comments: 1-2 a week but not consistant Alcohol intake: never Substance use: never Substance use type: does not use Living arrangements: with family Occupation/Education: occupation 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 There is no relevant family history pertinent to the patient complaint. Exam Narrative: GENERAL: This is a well-nourished, well-developed adult, in no apparent distress. They are non ill-appearing, nontoxic appearing. HEAD: normocephalic, atraumatic. EYES: Sclera clear/white. Conjunctiva normal. Vision is grossly intact. Extraocular movements intact EARS: External ears normal, Hearing grossly intact. NOSE: External nose normal THROAT: Mucous membranes moist, posterior pharynx clear, without erythema or swelling. Uvula midline. NECK: Neck supple, non-tender without lymphadenopathy, masses or thyromegaly. CARDIOVASCULAR: Regular rate and rhythm without murmurs, gallops, or rubs. RESPIRATORY: Clear to auscultation. Breath sounds equal bilaterally. No wheezes, rales, or rhonchi. SKIN: warm, Dry, intact with no suspicious lesions or rash, good texture and turgor. NEURO: awake, alert, and oriented to person, place and time. There were no obvious focal neurologic abnormalities. EXTREMITIES: No joint tenderness, effusion, or edema noted. BACK: Nontender without deformity. Course Course Emergency Course: Portions of this record may have been created with voice recognition software Level of Care: Express Care Visit Vital Signs Vital signs: Vital Signs Temperature 97.5 F L 09/03/24 16:21 Pulse Rate 79 09/03/24 16:21 Respiratory Rate 16 09/03/24 16:21 Blood Pressure 158/108 H 09/03/24 16:21 Pulse Oximetry 99 09/03/24 16:21 Temperature 97.5 F L 09/03/24 16:21 Pulse Rate 79 09/03/24 16:21 Respiratory Rate 16 09/03/24 16:21 Blood Pressure 158/108 H 09/03/24 16:21 Pulse Oximetry 99 09/03/24 16:21 Reviewed Transfer Transfered to: [place] Transportation: Other (Private vehicle) Transfer rationale: Hyperglycemia, possible dehydration, possible acute kidney injury, diabetes complications, requiring higher level care Accepting physician: Dr. Zaman Medical Decision Making MDM Narrative Medical decision making narrative: Patient's blood sugar 355 today. Urine dipstick showing glucose, protein, and microscopic blood. No ketones or any evidence of infection. Patient does not appear clinically dehydrated. Likely patient's symptoms are related to his diabetes. However given patient's symptoms, it is recommend the patient seek a higher level care and proceed immediately to the emergency department. Patient is agreeable about [facility]. Colored [facility] and spoke to Dr. Zaman who is aware this patient accepted the patient for transfer. Patient advised to remain NPO proceed immediately to the emergency department. Differential Diagnosis Differential Diagnosis: DKA, HHS, hyperglycemia, acute kidney injury, dehydration Vital Signs Vital Signs: Vital Signs Temperature 97.5 F L 09/03/24 16:21 Pulse Rate 79 09/03/24 16:21 Respiratory Rate 16 09/03/24 16:21 Blood Pressure 158/108 H 09/03/24 16:21 Pulse Oximetry 99 09/03/24 16:21 Temperature 97.5 F L 09/03/24 16:21 Pulse Rate 79 09/03/24 16:21 Respiratory Rate 16 09/03/24 16:21 Blood Pressure 158/108 H 09/03/24 16:21 Pulse Oximetry 99 09/03/24 16:21 Lab Data Lab results reviewed: Yes I reviewed the patient's lab results. Labs: Lab Results 09/03/24 09/03/24 Range/Units 16:27 17:19 POC Capillary Glucose 355 H (65-105) mg/dl POC Urine Color Yellow POC Urine Clarity Clear POC Urine pH 6.0 POC Ur Specif Odon 1.030 POC Urine Protein 1+ (Negative) POC Ur Glucose (UA) 2+ (Negative) POC Urine Ketones Negative (Negative) POC Urine Blood Trace (Negative) POC Urine Nitrite Negative (Negative) POC Urine Bilirubin Negative (Negative) POC Urine Urobilinogen 1.0 POC U Leukocyte Esteras Negative (Negative) Critical Care Time Critical Care Time Critical Care Time: No Discharge Plan Discharge Clinical Impression: Hyperglycemia, Weakness Patient Disposition: Acute Care Hospital Condition: Stable Patient Language: Moroccan Prescriptions: No Action cetirizine [Zyrtec] 10 mg Tablet 10 mg PO DAILY amlodipine 5 mg Tablet 5 mg PO DAILY bupropion HCl 100 mg Tablet 100 mg PO DAILY famotidine [Pepcid] 20 mg Tablet 20 mg PO BID alendronate-vitamin D3 70 mg- 2,800 unit Tablet 1 tablet PO WEEKLY Rx Instructions: on sunday (DME) lancets [Accu-Chek Softclix Lancets] Misc See Rx Instructions .ROUTE .MEDSUPPLY Qty: 50 0RF Rx Instructions: As directed (DME) lancets [BD Ultra Fine Lancets] 33 gauge misc See Rx Instructions .ROUTE .MEDSUPPLY Qty: 100 0RF Rx Instructions: As directed (DME) OneTouch Verio test strips Strip Qty: 10 9RF Rx Instructions: As Directed (DME) insulin syringe-needle U-100 [BD Insulin Syringe] 1 mL 29 gauge x 1/2 Syringe Qty: 1 0RF Rx Instructions: As Directed insulin aspart U-100 [Novolog U-100 Insulin aspart] 100 unit/mL Solution 6 unit SUBCUT TIDWM Qty: 10 0RF (DME) insulin syringes (disposable) 1 mL syringe See Rx Instructions .ROUTE .MEDSUPPLY Qty: 500 0RF Rx Instructions: As directed Follow-up/Referrals: PHYSICIAN,MACHINE I CUTTER [Primary Care Provider] - Time of Disposition: 17:00
== END 2024-09-03 17:10 | disposition short-term general hospital (02) ==
DX: E11.65 Type 2 diabetes mellitus with hyperglycemia (principal); R53.1 Weakness
CPT/HCPCS: 81003; 82948; 99212; 99213; G0463

== ENCOUNTER 2024-09-03 17:32 | Emergency (ER) | payer OTHER, SELFPAY ==
[2024-09-03 17:45] VITALS: BP 143/108; PULSE 85; RESP 20; TEMP 36.8; O2SAT 98
[2024-09-03 17:58] LABS: Glucose Point of Care 296 mg/dl (65-105)
[2024-09-03 19:20] LABS: Add Urine Microscopic? YES; Appearance Urine Clear (Clear); Bacteria Urine None Seen /hpf; Bilirubin Urine Negative (Negative); Blood Urine Negative (Negative); Color Urine Yellow (Yellow); Glucose Urine UA 3+ mg/dL (Negative); Ketones Urine Trace mg/dL (Negative); Leukocyte Esterase Ur Negative LEU/UL (Negative); Nitrate Urine Negative (Negative); Non Pathogenic Casts 0-2; Protein Urine Trace mg/dL (Negative); RBC Urine 0-2 /hpf (0-2); Specific Grav Ur 1.042 (1.001-1.035); Squamous Epithelial Cell Urine None Seen /hpf (Few); WBC Urine 0-5 /hpf (0-3); pH Urine 5.5 (5.0-9.0)
== END 2024-09-03 22:48 | disposition left against medical advice (07) ==
LOC: ANHED 21:29
PROVIDERS: Emergency Provider Emergency Medicine
DX: R73.9 Hyperglycemia, unspecified (principal); R53.1 Weakness; I10 Essential (primary) hypertension
CPT/HCPCS: 81001; 82948; 99199

== ENCOUNTER 2024-09-28 07:39 | Emergency (ER) | payer OTHER, MEDICAID, SELFPAY ==
--- NOTE | ~2024-09-28 | CT_ITS ---
CT of the Abdomen and Pelvis: Indication: Left flank pain Technique: 2.5 mm axial scans were obtained through the abdomen and pelvis following intravenous adm inistration of 100 cc of Omnipaque 350. Dose reduction technique was used on this scan by utilizing a utomated exposure control and iterative reconstruction technique. The dose-length product (DLP) was 1 465.50 mGy-cm. Findings: Scans through the lung bases are unremarkable. The liver, spleen, pancreas, gallbladder, adrenals and kidneys are within normal limits. No evidence of aortic aneurysm. No lymphadenopathy. No bowel obstruction or bowel wall thickening. There is no evidence to suggest acute appendicitis. Images through the pelvis were performed. Urinary bladder unremarkable. No pelvic mass seen. No ascit es. Impression: No significant abnormalities seen. Reviewed, dictated and finalized at [facility]. Impression: No significant abnormalities seen.
--- OUTSIDE RECORDS SUMMARY | 2024-09-28 07:41 | XMS_ITS | Continuity of Care Document ---
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 Role Phone Onyene DNP [employer] BC, [place] Unavailable Unavailable Allergies, Adverse Reactions, Alerts Substance Reaction Status Criticality No Known Allergies Active No Inform ation Medications Medication Instructions Dosage Effective Dates (start - stop) Status Comments Debrox 6.5 % ear drops instill 5 drop by otic route 2 times every day into affected ear(s) for Cerumen impaction 5.00 drop - Active buprenorphine HCl [address] 1 tablet by sublingual route 2 times every day allow to dissolve slowly in mouth without chewing or swallowing 8 MG - Active baclofen 10 mg tablet take 1 tablet by oral route 3 times every day as needed 10 MG - Active clonidine HCl 0.1 mg tablet take 1 tablet by oral route 2 times every day as needed 0.1 MG - Active gabapentin 300 mg capsule take 1 capsule by oral route 4 time a day for 2 days - Active hydroxyzine pamoate 50 mg capsule take 1 capsule by oral route 4 times every day as needed 50 MG - Active trazodone 100 mg tablet take 1 -2 tabs by mouth at bedtime - Active ondansetron HCl 8 mg tablet take 1 tablet by oral route 3 times every day as needed 8 MG - Active Procedures Procedure Date OFFICE O/P NEW MOD 45-59 MIN Results Test Name Date and Time Measure Units Reference Range Abnormal Flag Status Comments Panel Description: DRUG CLEVE RIOS, PANEL 8 WITH CONFIRMATION, URINE Final Alcohol Metabolites 12:38: 00 NEGATIVE ng/mL <500 Final Performed by:Hilary Segura ()[address] [place] [address] medMATCH Alcohol Metab 12:38: 00 DNR N Final Performed by:Hilary Segura ()[address] [place] [address] Ethyl Glucuronide (ETG) 12:38: 00 DNR ng/mL N Final Performed by:Hilary Segura ()[address] [place] [address] medMATCH ETG 12:38: 00 DNR N Final Performed by:Hilary Segura ()[address] [place] [address] Ethyl Sulfate (ETS) 12:38: 00 DNR ng/mL N Final Performed by:Hilary Segura ()[address] [place] [address] medMATCH ETS 12:38: 00 DNR N Final Performed by:Hilary Segura ()[address] [place] [address] Alcohol Metab Comments 12:38: 00 DNR N Final Performed by:Hilary Segura ()[address] [place] [address] Amphetamines 12:38: 00 NEGATIVE ng/mL <500 Final Performed by:Hilary villaKapitallEllie Segura ()[address] [facility] [place] [address] medMATCH Amphetamines 12:38: 00 DNR N Final Performed by:Hilary villaKapitallEllie Segura ()[address] [facility] [place] [address] Amphetamine 12:38: 00 DNR ng/mL N Final Performed by:Hilary Segura ()[address] [place] [address] medMATCH Amphetamine 12:38: 00 DNR N Final Performed by:Hilary Segura ()[address] [place] [address] Methamphetamine 12:38: 00 DNR ng/mL N Final Performed by:Hilary Segura ()[address] [place] [address] medMATCH Methamphetamine 12:38: 00 DNR N Final Performed by:Hilary Segura ()[address] [place] [address] Amphetamines Comments 12:38: 00 DNR N Final Performed by:Hilary Segura ()[address] [place] [address] Benzodiazepines 12:38: 00 NEGATIVE ng/mL <100 Final Performed by:Hilary Segura ()[address] [place] [address] medMATCH Benzodiazepines 12:38: 00 DNR N Final Performed by:Hilary Segura ()[address] [place] [address] Alphahydroxyalpraz olam 12:38: 00 DNR ng/mL N Final Performed by:Hilary Segura ()[address] [place] [address] medMATCH aOH alprazolam 12:38: 00 DNR N Final Performed by:Hilary Seugra ()[address] [place] [address] Alphahydroxymidazo montalvo 12:38: 00 DNR ng/mL N Final Performed by:Hilary Segura ()[address] [place] [address] medMATCH aOH midazolam 12:38: 00 DNR N Final Performed by:Hilary Segura ()[address] [facility] [address] Alphahydroxytriazo montalvo 12:38: 00 DNR ng/mL N Final Performed by:Hilary MarchLc Segura ()[address] [place] [address] medMATCH aOH triazolam 12:38: 00 DNR N Final Performed by:Hilary MarchLc Segura ()[address] [place] [address] Aminoclonazepam 12:38: 00 DNR ng/mL N Final Performed by:Hilary MarchLc Segura ()[address] [place] [address] medMATCH Aminoclonazepam 12:38: 00 DNR N Final Performed by:Hilary Segura ()[address] [place] [address] Hydroxyethylfluraz epam 12:38: 00 DNR ng/mL N Final Performed by:Hilary Segura ()[address] [facility] [place] [address] medMATCH [place],Et flurazepam 12:38: 00 DNR N Final Performed by:Hilary Segura ()[address] [facility] [address] Lorazepam 12:38: 00 DNR ng/mL N Final Performed by:Hilary villaest JoaquimLc Segura ()[address] [facility] [place] [address] medMATCH Lorazepam 12:38: 00 DNR N Final Performed by:Hilary MarchLc Segura ()[address] [place] [address] Nordiazepam 12:38: 00 DNR ng/mL N Final Performed by:Hilary Segura ()[address] [place] [address] medMATCH Nordiazepam 12:38: 00 DNR N Final Performed by:Hilary Segura ()[address] [place] [address] Oxazepam 12:38: 00 DNR ng/mL N Final Performed by:Hilary Segura ()[address] [place] [address] medMATCH Oxazepam 12:38: 00 DNR N Final Performed by:Hilray Segura ()[address] [place] [address] Temazepam 12:38: 00 DNR ng/mL N Final Performed by:Hilary Segura ()[address] [place] [address] medMATCH Temazepam 12:38: 00 DNR N Final Performed by:Hilary Segura ()[address] [place] [address] Benzodiazepines Comments 12:38: 00 DNR N Final Performed by:Hilary Segura ()[address] [place] [address] Buprenorphine 12:38: 00 NEGATIVE ng/mL <5 Final Performed by:Hilary Segura ()[address] [place] [address] medMATCH Buprenorphine 12:38: 00 DNR N Final Performed by:Hilary Segura ()[address] [place] [address] Buprenorphine 12:38: 00 DNR ng/mL N Final Performed by:Hilary Segura ()[address] [place] [address] medMATCH Buprenorphine 12:38: 00 DNR N Final Performed by:Hilary Segura ()[address] [place] [address] Norbuprenorphine 12:38: 00 DNR ng/mL N Final Performed by:Hilary Segura ()[address] [place] [address] medMATCH Norbuprenorphine 12:38: 00 DNR N Final Performed by:Hilary Segura ()[address] [place] [address] Naloxone 12:38: 00 DNR ng/mL N Final Performed by:Hilary Segura ()[address] [place] [address] medMATCH Naloxone 12:38: 00 DNR N Final Performed by:Hilary Segura ()[address] [place] [address] Buprenorphine Comments 12:38: 00 DNR N Final Performed by:Hilary Segura ()[address] [place] [address] Cocaine Metabolite 12:38: 00 POSITIVE ng/mL <150 A Final Performed by:Hilary Segura ()[address] [place] [address] medMATCH Cocaine Metab 12:38: 00 DNR N Final Performed by:Hilary Segura ()[address] [place] [address] Benzoylecgonine 12:38: 00 148 ng/mL <100 H Final Performed by:Hilary Segura ()[address] [place] [address] medMATCH Benzoylecgonine 12:38: 00 DNR N Final Performed by:Hilary Segura ()[address] [place] [address] Cocaine Comments 12:38: 00 SEE COMMENT Final See Cocaine Not es, LDT NotesPerformed by:Marti Segura ()[address] [place] [address] Acetylmorphine 12:38: 00 NEGATIVE ng/mL <10 Final Performed by:Hilary Segura ()[address] [place] [address] medMATCH 6 Acetylmorphine 12:38: 00 DNR N Final Performed by:Hilary Segura ()[address] [place] [address] Acetylmorphine 12:38: 00 DNR ng/mL N Final Performed by:Hilary Segura ()[address] [facility] [place] [address] medMATCH 6 Acetylmorph 12:38: 00 DNR N Final Performed by:Hilary Segura ()[address] [facility] [place] [address] Heroin Metab Comments 12:38: 00 DNR N Final Performed by:Hilary Segura ()[address] [facility] [place] [address] Marijuana Metabolite 12:38: 00 NEGATIVE ng/mL <20 Final Performed by:Hilary Segura ()[address] [facility] [address] medMATCH Marijuana Metab 12:38: 00 DNR N Final Performed by:Hilary Segura ()[address] [place] [address] Marijuana Metabolite 12:38: 00 DNR ng/mL N Final Performed by:Hilary Segura ()[address] [place] [address] medMATCH Marijuana Metab 12:38: 00 DNR N Final Performed by:Hilary Segura ()[address] [place] [address] Marijuana Comments 12:38: 00 DNR N Final Performed by:Hilary Segura ()[address] [place] [address] MDMA 12:38: 00 NEGATIVE ng/mL <500 Final Performed by:Hilary Segura ()[address] [place] [address] medMATCH MDMA 12:38: 00 DNR N Final Performed by:Hilary Segura ()[address] [place] [address] MDA 12:38: 00 DNR ng/mL N Final Performed by:Hilary Segura ()[address] [place] [address] medMATCH MDA 12:38: 00 DNR N Final Performed by:Hilayr Segura ()[address] [place] [address] MDMA 12:38: 00 DNR ng/mL N Final Performed by:Hilary Segura ()[address] [place] [address] medMATCH MDMA 12:38: 00 DNR N Final Performed by:Hilary Segura ()[address] [place] [address] MDMA Comments 12:38: 00 DNR N Final Performed by:Hilary Segura ()[address] [place] [address] Opiates 12:38: 00 NEGATIVE ng/mL <100 Final Performed by:Hilary Segura ()[address] [place] [address] medMATCH Opiates Oct-26 -2024 12:38: 00 DNR N Final Performed by:Hilary Segura ()[address] [place] [address] Codeine 12:38: 00 DNR ng/mL N Final Performed by:Hilary Segura ()[address] [place] [address] medMATCH Codeine 12:38: 00 DNR N Final Performed by:Hilary Segura ()[address] [place] [address] Hydrocodone 12:38: 00 DNR ng/mL N Final Performed by:Hilary Segura ()[address] [facility] [address] medMATCH Hydrocodone 12:38: 00 DNR N Final Performed by:Hilary Segura ()[address] [facility] [place] [address] Hydromorphone 12:38: 00 DNR ng/mL N Final Performed by:Hilary Segura ()[address] [facility] [place] [address] medMATCH Hydromorphone 12:38: 00 DNR N Final Performed by:Hilary Segura ()[address] [facility] [address] Morphine 12:38: 00 DNR ng/mL N Final Performed by:Hilary Segura ()[address] [facility] [address] medMATCH Morphine 12:38: 00 DNR N Final Performed by:Hilary Segura ()[address] [facility] [address] Norhydrocodone 12:38: 00 DNR ng/mL N Final Performed by:Hilary Segura ()[address] [place] [address] medMATCH Norhydrocodone 12:38: 00 DNR N Final Performed by:Hilary Segura ()[address] [place] [address] Opiates Comments 12:38: 00 DNR N Final Performed by:Hilary Segura ()[address] [place] [address] Oxycodone 12:38: 00 NEGATIVE ng/mL <100 Final Performed by:Hilary Segura ()[address] [place] [address] medMATCH Oxycodone 12:38: 00 DNR N Final Performed by:Hilary Segura ()[address] [place] [address] Noroxycodone 12:38: 00 DNR ng/mL N Final Performed by:Hilary Segura ()[address] [place] [address] medMATCH Noroxycodone 12:38: 00 DNR N Final Performed by:Hilary Segura ()[address] [place] [address] Oxycodone 12:38: 00 DNR ng/mL N Final Performed by:Hilary Segura ()[address] [place] [address] medMATCH Oxycodone 12:38: 00 DNR N Final Performed by:Hilary villaest Philippe Segura ()[address] [place] [address] Oxymorphone 12:38: 00 DNR ng/mL N Final Performed by:Hilary villaest Interact.ioEllie Segura ()[address] [place] [address] medMATCH Oxymorphone 12:38: 00 DNR N Final Performed by:Hilary Segura ()[address] [place] [address] Oxycodone Comments 12:38: 00 DNR N Final Performed by:Hilary Segura ()[address] [place] [address] Creatinine 12:38: 00 340.8 mg/dL > or = 20.0 Final Performed by:Marti Segura ()[address] [place] [address] Specific [place] 12:38: 00 DNR N Final Performed by:Hilary Segura ()[address] [place] [address] pH 12:38: 00 7.6 4.5-9.0 Final Performed by:Hilary Segura ()[address] [place] [address] Oxidant 12:38: 00 NEGATIVE mcg/mL <200 Final Performed by:Hilary Segura ()[address] [place] [address] Abnormal Specimen Validity Test: 12:38: 00 DNR N Final Performed by:Hilary Segura ()[address] [place] [address] Panel Description: DRUG MONITOR, FENTANYL, QN, U RINE Final Fentanyl 12:38: 00 34.7 ng/mL <0.5 H Final Performed by:Hilary Segura ()[address] [place] [address] medMATCH Fentanyl 12:38: 00 DNR N Final Performed by:Hilary Segura ()[address] [facility] [place] [address] Norfentanyl 12:38: 00 >500.0 ng/mL <0.5 H Final Performed by:Hilary Segura ()[address] [place] [address] medMATCH Norfentanyl 12:38: 00 DNR N Final Performed by:Hilary NegotiantEllie Segura ()[address] [place] [address] Fentanyl Comments 12:38: 00 SEE COMMENT Final See Fentanyl No tiffani, LDT NotesPerformed by:TestlioEllie Segura ()[address] [place] [address] Panel Description: DRUG MONITORING TEMPLATE Hakan jaramillo Notes and Comments 12:38: 00 SEE COMMENT Final This drug testi ng is for medical treatment only.Analysis was performed as non-forensic testing andthese results should be used only by healthcareproviders to render diagnosis or treatment, or tomonitor progress of medical conditions. Cocaine Notes:Benzoylecgonin e detected is consistent with the use of the drug Cocaine. Fentanyl Notes:Fentanyl, Norfentanyl detected is consistent with the use of the drug Fentanyl. LDT Notes:Confirmation tests were developed and their analytical performance characteristics have been determined by [facility]. It has not been cleared or approved by the FDA. This assay has been validated pursuant to the CLIA regulations and is used for clinical purposes. Healthcare Providers needing Interpretation assistance, please contact us at [phone] ( ) M-F, 8am to 10pm ESTPerformed by:[employer] ([id number] [place] [address] Patient Historical Report 12:38: 00 DNR N Final Performed by:Hilary MedboxBuchanan ([id number] [facility] [place] [address] Advance Directives Directive Yes / No Effective Date File Name Other Directive No N/A N/A WARNING:The information contained in this section is historical and is provided for information only and does not constitute a legal document or any assurance that the information is still accurate. Please verify the information with the leahy of the legal document before using it for clinical purposes. Encounters Encounter Description Practice Location Reason(s) For Visit Diagnoses Date Provider Providers Copied on Encounter OFFICE O/P NEW MOD 45-59 MIN [facility], [address], [place], [id number], [place] tel:[phone] [facility] Wm Physical (chief complaint) Provider's note (chief complaint) Body mass index [BMI] 38.0-38.9, adultTobacco useOpioid dependence with withdrawalSti mulant Use Disorder, Severe, CocaineImpact ed cerumen, bilateralEnco unter for adult annual physical exam w/ abnormal findingObesit yHypertension Onyema Jim chavez. [address] [place] [address], [id number] [address], [place], [id number] , . tel:[phone] Referring Provider: Riana Cristobal, [address] [place] [address] [id number], [address]. tel:[phone] Family History Family Member Type Diagnosis Age At Onset Mother Problem Hypertension Mother Problem Alive and well Father Problem Diabetes mellitus Mother Problem Diabetes mellitus Payers Payer name Insurance type Covered alliance party ID Authorkodaka chance(s) Healthy Blue CI [id number] Social History Type Description Quantity Date Captured Comments Alcohol Use Details Unknown Caffeine Use Details Unknown Tobacco Use Status Light tobacco smoker 2023 Smoking Status Light tobacco smoker Smoking Tobacco Use Details Cigar: No Details Available Cigar: 2 Cigars per day Sex Male Sexual Orientation Straight or heterosexual Gender Identity Male Vital Signs Date / Time: Height Weight BMI Pulse Rate Blood Pressure Temperature Respiratory Rate Body Surface Area Head Circumference Head Circ. Percentile Wt./Steven. Percentile BMI percentile Pulse Ox Inhaled Ox 1:31 PM 72.00 in 128.049 kg (282.30 lbs) 38.2 9 kg/m eter (2) 70 /min 158/98 mm[Hg] 98.40 F 20 /min 2.55 meter(2) 99 % Chief Complaint And Reason For Visit From encounter dated 01/01/2024 13:20'. Wm Physical (chief complaint). Description: Pt presents today for WM physical. C/O muffled left ear, no pain Provider's note (chief complaint). Description: 48-y/o JOSE who is in the unit for OUD/LANE, presents for physical exam. He endorses the use of Fentanyl by insufflation and cocain by smoking. He reports that he last use these drugs 12/27/23. He reports PMH of DM-type2, HTN, and anxiety,He states that he has not had medications for diabetes and HTN for the past 3-months. He states he does not recall the names of medicines he was on He also states that the medicines where given to him about six months ago when he was in the hospital but that he did not f/u with any PCP. He also c/osome muffling sound occasionally on the left ear but otherwise doing okay. Reason For Referral Reason For Referral No Information Plan Of Treatment Date Type Action Status Goal Td vaccine. Due on due Goal Tdap. Due on due Goal Hepatitis C screening. Due o n due Goal Unhealthy drug use screening due Goal Diabetes screening. Due on O ct due Goal Depression screening. Due on due Goal Influenza vaccine. Due on Oc t due Goal Tobacco cessation counseling completed Goal Dietary management education , guidance, and counseling completed History Of Present Illness Encounter Date Complaint History Of Prese nt Illness Provider's note 48-y/o JOSE who i s in the unit for OUD/LANE, presents for physical exam. He endorses the use of Fentanyl by insufflation and cocain by smoking. He reports that he last use these drugs 12/27/23. He reports PMH of DM-type2, HTN, and anxiety, He states that he has not had medications for diabetes and HTN for the past 3-months. He states he does not recall the names of medicines he was on He also states that the medicines where given to him about six months ago when he was in the hospital but that he did not f/u with any PCP. He also c/o some muffling sound occasionally on the left ear but otherwise doing okay. Wm Physical Pt presents toda y for WM physical. C/O muffled left ear, no pain Functional Status Date Functional Assessmen t Pain Score 0/10 Instructions Date Instruction Additional Infor mation Giving encouragement to exercise Related to Body mass index [BMI] 38.0-38.9, adult Dietary management e ducation, guidance, and counseling Related to Body mass index [BMI] 38.0-38.9, adult Assessments Type Assessment Date assessment Body mass index [BMI] 38.0-38.9, adult assessment Tobacco use assessment Opioid dependence with withdrawa l assessment Stimulant Use Disorder, Severe, Cocaine assessment Impacted cerumen, bilateral assessment Encounter for adult annual physi kash exam w/ abnormal finding assessment Obesity assessment Hypertension Mental Status Date Cognitive Assessment Orientation - [place] ed to time, place, person, situation. Patient Care Teams Name Effective Dates (start - stop) Status Members No Information
--- OUTSIDE RECORDS SUMMARY | 2024-09-28 07:42 | XMS_ITS | Clinical Summary ---
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 Name Role Phone Unknown, Notinfile Primary Care Provider Unavail able Allergies No known active allergies Medications amLODIPine (NORVASC) 10 mg tablet Take 1 tablet (10 mg total) by mouth daily 30 tablet 1 3 Active carvediloL (COREG) 25 mg tablet Take 1 tablet (25 mg total) by mouth 2 (two) times a day with meals 60 tablet 1 3 Active cloNIDine (CATAPRES) 0.3 mg tablet Take 1 tablet (0.3 mg total) by mouth 2 (two) times a day 60 tablet 1 3 Active lisinopriL (PRINIVIL,ZESTR IL) 20 mg tablet Take 1 tablet (20 mg total) by mouth daily 30 tablet 1 3 Active aspirin 81 mg enteric coated tablet Take 1 tablet (81 mg total) by mouth daily 30 tablet 11 3 Active albuterol HFA (ProAir HFA) 90 mcg/actuation inhaler Inhale 2 puffs every 4 (four) hours as needed for wheezing or shortness of breath 3 each 3 Active fluticasone propion-salmete roL (ADVAIR DISKUS) 250-50 mcg/dose diskus inhaler Inhale 1 puff 2 (two) times a day Rinse mouth with water after use. Do not swallow. 60 each 3 Active atorvastatin (LIPITOR) 10 mg tabletIndicatio ns:hyperlipidem ia Take 1 tablet (10 mg total) by mouth daily 30 tablet 1 3 Active hydrOXYzine (ATARAX) 25 mg tabletIndicatio ns:anxiety Take 1 tablet (25 mg total) by mouth nightly as needed for anxiety 30 tablet 3 Active sertraline (ZOLOFT) 50 mg tabletIndicatio ns:depression Take 1 tablet (50 mg total) by mouth daily 30 tablet 1 3 Active traZODone (DESYREL) 100 mg tabletIndicatio ns:insomnia associated with depression Take 2 tablets (200 mg total) by mouth nightly as needed for sleep 30 tablet 1 3 Active metFORMIN (GLUCOPHAGE) 1,000 mg tabletIndicatio ns:type 2 diabetes mellitus Take 1 tablet (1,000 mg total) by mouth 2 (two) times a day with meals 60 tablet 11 3 Active Active Problems Problem Noted Date Diagnosed Date Intractable nausea and vomiting 10/30/2023 Mood disorder 08/23/2022 Assessment & Plan (08/25/2022 1:04 PM CDT): Fair progress - feeling down but no SI Plan - zoloft 50 mg every day - PRNs for comfort and safety - appreciate SW and medical team recs Assessment & Plan (08/24/2022 2:58 PM CDT): Fair progress Plan - Will wait to start treatment for depression - PRNs for comfort and safety - appreciate SW and medical team recs Type 2 diabetes mellitus 08/23/2022 Assessment & Plan (08/24/2022 11:17 AM CDT): A1c 11 in july. -increase metformin 500 BID->1g BID -start atorvastatin 10 -OP follow up for continued diabetes mgt and escalation of medication -counseled patient on lifestyle modifications RENETTA (obstructive sleep apnea) 08/23/2022 Assessment & Plan (08/23/2022 2:21 PM CDT): Pt w/o CPAP at home. OP f/u Obesity (BMI 30-39.9) 08/23/2022 Assessment & Plan (08/23/2022 2:22 PM CDT): BMI 33.4. likely contributing to DM and RENETTA. Encourage weight loss and OP f/u. Opioid use disorder 07/24/2022 Assessment & Plan (08/25/2022 1:04 PM CDT): Fair progress - no withdrawal sx -- cannot stay on methadone as he does not have an OP provider. Does not want to take suboxone. Plan - taper methadone then stop it - pt is not interested in suboxone -councelling on opioid use disorder cessation -[facility] conslt done Assessment & Plan (08/24/2022 11:16 AM CDT): Daily snorting of fentanyl. Last time was night prior to discharge. Pt having withdrawal symptoms. Declined suboxone given GI SE (unclear if true SE or precipitated withdrawal). Pt interested in methadone. Spoke to yesiy and SW and trying to facilitate to treat inpatient and set up outpatient [facility] f/u. -pt started on methadone 10 BID Assessment & Plan (08/24/2022 2:58 PM CDT): Fair progress - no withdrawal sx -- cannot stay on methadone as he does not have an OP provider. Does not want to take suboxone. Plan - taper methadone then stop it - pt is not interested in suboxone -councelling on opioid use disorder cessation -[facility] conslt done Encephalopathy 07/24/2022 Hypertension, unspecified type 04/30/2022 Assessment & Plan (08/23/2022 2:19 PM CDT): Continue amlodipine, coreg, clonidine, lisinopril. Peritonsillar abscess Resolved Problems Problem Noted Date Diagnosed Date Resolved Date Suicidal ideations 08/23/2022 Assessment & Plan (08/23/2022 2:17 PM CDT): Pt w/ depression and SI likely c/b active drug use. Pt currently w/o SI -mgt per primary team Opioid withdrawal 08/23/2022 08/24/2022 Assessment & Plan (08/23/2022 11:00 AM CDT): Patient is complaining of nausea, abdominal pain, cramping yesterday. Does not want suboxone. Plan Tylenol 650mg QID PRN for pain/ALEMAN Clonidine 0.1mg TID Bentyl 20mg QID for abdominal cramping Ondansetron 4mg TID PRN for nasea/vomiting Loperamide 4mg Qid PRN for nausea/diarrhea Atarax 25mg TID PRN for anxiety Medical History Medical History Date Comments Asthma Diabetes mellitus (HCC) Hypertension Stroke (HCC) Sleep apnea Social History Tobacco Use Types Packs/Day Years Used Date Smoking Tobacco: Every Day Cigarettes 0.5 20 Tobacco Cessation:Ready to Q uit: No; Counseling Given: Yes Alcohol Use Standard Drinks/Week Comments Not Currently 0 (1 standard drink = 0.6 oz pur e alcohol) [facility] [employer] Answer Date Recorded In the past 12 months has e [employer], [employer], or water [employer] threatened to shut off services in your home? No 11/01/2023 Humiliation, Afraid, Rape, and Kick questionnair e Answer Date Recorded Within the last year, have y ou been afraid of your partner or ex-partner? Patient declined 08/23/2022 Within the last year, have y ou been humiliated or emotionally abused in other ways by your partner or ex-partner? Patient declined 08/23/2022 Within the last year, have y ou been kicked, hit, slapped, or otherwise physically hurt by your partner or ex-partner? Patient declined 08/23/2022 Within the last year, have y ou been raped or forced to have any kind of sexual activity by your partner or ex-partner? Patient declined 08/23/2022 Social Connection and Isolat ion Panel [NHANES] Answer Date Recorded In a typical week, how many times do you talk on the phone with family, friends, or neighbors? More than three times a week 11/01/2023 How often do you get togethe r with friends or relatives? More than three times a week 11/01/2023 How often do you attend [facility] or caodaism services? Never 11/01/2023 Do you belong to any clubs o r organizations such as restoration groups, unions, fraternal or athletic groups, or school groups? No 11/01/2023 How often do you attend meet ings of the clubs or organizations you belong to? Never 11/01/2023 Are you , , di vorced, , never , or living with a partner? Living with partner 11/01/2023 AUDIT-C Answer Date Recorded Q1: How often do you have a drink containing alcohol? Never 07/24/2022 Q2: How many drinks containi ng alcohol do you have on a typical day when you are drinking? Patient does not drink Q3: How often do you have si x or more drinks on one occasion? Never 07/24/2022 Overall Financial Resource Strain (CARDIA) Answe r Date Recorded How hard is it for you to pa y for the very basics like food, housing, medical care, and heating? Not very hard 11/01/2023 [facility] - Occupational Stress Questionnaire Answer Date Recorded Do you feel stress - tense, restless, nervous, or anxious, or unable to sleep at night because your mind is troubled all the time - these days? Patient declined 08/23/2022 Exercise Vital Sign Answer Date Recorde d On average, how many days pe r week do you engage in moderate to strenuous exercise (like a brisk walk)? Patient declined On average, how many minutes do you engage in exercise at this level? Patient declined 08/23/2022 Hunger Vital Sign Answer Date Recorded Within the past 12 months, y ou worried that your food would run out before you got the money to buy more. Never true 11/01/19 24 Within the past 12 months, t he food you bought just didn't last and you didn't have money to get more. Never true 11/01/2023 PRAPARE - Transportation Answer Date Re corded In the past 12 months, has l ack of transportation kept you from medical appointments or from getting medications? No 10/11 In the past 12 months, has l ack of transportation kept you from meetings, work, or from getting things needed for daily living? No 11/01/2023 Housing Stability Vital Sign Answer Saji e Recorded In the last 12 months, was t here a time when you were not able to pay the mortgage or rent on time? No 07/25/2022 Number of Places Lived in the Last Year Not on f ile 07/25/2022 In the last 12 months, was t here a time when you did not have a steady place to sleep or slept in a fdc (including now)? No 07/25/2022 Housing Stability Vital Sign Answer Saji e Recorded In the last 12 months, was t here a time when you were not able to pay the mortgage or rent on time? No 11/01/2023 In the past 12 months, how m any times have you moved where you were living? 0 11/01/2023 At any time in the past 12 m [facility], were you homeless or living in a fdc (including now)? No 11/01/2023 Personal Safety Answer Date Recorded Have you ever been in or are you currently in a harmful physical or emotional relationship or is someone making you feel afraid or unsafe? 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 Gender Identity Not on file Sexual Orientation Not on file Obstetrics History Last Filed Vital Signs Vital Sign Reading Time Taken Comments Blood Pressure 144/78 11/02/2023 12:36 PM CDT Pulse 65 11/02/2023 12:36 PM CDT Temperature 37 C (98.6 F) 11/02/2023 12:36 PM CDT Respiratory Rate 18 11/02/2023 12:3 6 PM CDT Oxygen Saturation 99% 11/02/2023 12: 36 PM CDT Inhaled Oxygen Concentration - - Weight 116.3 kg (256 lb 4.8 oz) 10/30/2023 6:34 PM CDT Height 190.5 cm (6' 3) 10/30/2023 6:34 PM CDT Body Mass Index 32.04 10/30/2023 6:34 PM CDT Plan of Treatment Health Maintenance Due Date Last Done Comments Albumin Creatinine Ratio, Urine 1976 Colon Cancer Screening-Colonoscopy 1976 Hepatitis C Screening 1976 Prostate Cancer Screening-PSA 1976 Dilated Eye Exam 1976 Foot Exam 1976 Regular Well Visit/Exam 18-64 1994 Pneumococcal vaccine <65 (1 of 2 - PCV) 08/06/1995 DTaP/Tdap/Td Vaccine (3 - Td or Tdap) 07/23/2021 07/24/2011, 07/24/2011 Depression Screening 08/23/2023 08/22/2022 Lipid Panel 08/23/2023 08/22/2022, 07/11, 11/30/2014 Hemoglobin A1C 05/01/2024 10/30/2023, 04/13, 05/21/2020 eGFR 10/31/2024 11/01/2023, 10/11, 08/22/2022, Additional history exists Influenza Vaccine (Season Ended) 2024 12/02/19 15 Hepatitis B Screening Completed 06/01/2010 , 03/25/2010, 10/20/2009 Procedures Procedure Name Priority Date/Time Associated Diagnosis Comments EGFR Routine 11/01/2023 5:22 AM CDT HEMOGLOBIN A1C Add-On 10/30/2023 7:31 AM CDT LIPID PANEL Add-On 08/22/2022 5:22 AM CDT from Last 3 Months or Most Recently Relevant to Health Maintenance Results * (ABNORMAL) eGFR (11/01/2023 5:22 AM CDT) eGFR 51(L) >=60 mL/min/1. 73 m2 Comment: Interpretive Data Reference Interval Normal >/= 90 mL/min/1.73m2 Mildly decreased* 60 - 89 mL/min/1.73m2 Mildly to moderately decreased 45 - 59 mL/min/1.73m2 Moderately to severely decreased 30 - 44 mL/min/1.73m2 Severely decreased 15 - 29 mL/min/1.73m2 Kidney Failure < 15 mL/min/1.73m2 *Relative to young adult level Estimated glomerular filtration rate is determined by the 2020 CKD-EPI equation recommended by the National Kidney Foundation (A Unifying Approach to GFR Estimation: Recommendations of the NKF-ASK Task Force on Reassessing the Inclusion of Race in Diagnosing Kidney Disease, IVANASN 2020). The CKD-EPI equation should not be used for patients with unstable renal function and has not been validated in children and those over 70. Current interpretive data was last reviewed 2021. Blood 11/01/2023 5:22 AM CDT 11/01/2023 5:44 AM CDT Ino Ortega HAUNTED HISTORY TOUR GUIDE LAB BLOOD ORDERABLES Final R esult Performing Organization Address [facility] de Phone Number [facility] [address] [place] [employer] [place] [address] * (ABNORMAL) Hemoglobin A1c (10/30/2023 7:31 AM CDT) Hgb A1C 7.4(H) 4.0 - 5.6 % Estimated Average Glucose 166 mg/dL KENYA TREVINO Comment: The ADA recommends reporting an estimated Average Glucose (eAG) with all Hemoglobin A1c results using the equation derived from a study of 507 normal and diabetic adults. Minority populations were underrepresented and children were not included. (Diabetes Care 31:4724-2747, 2008). The eAG is not equivalent to a fasting glucose. Blood 10/30/2023 7:31 AM CDT 10/31/2023 3:34 PM CDT Julissa Batista MD LAB BLOOD ORDERABLES Final Re sult Performing Organization Address [facility] de Phone Number [facility] [address] [place] [address] * Lipid panel (08/22/2022 5:22 AM CDT) Cholesterol 171 30 - 199 mg/dL KENYA GRAYSON Comment: Interpretive Data Ages < or = 19 years Acceptable: <170 mg/dL Borderline high: 170-199 mg/dL High: >or= 200 mg/dL Ages > or = 20 years Desirable: <200 mg/dL Borderline high: 200-239 mg/dL High: >or= 240 mg/dL Literature References: 1. Expert Panel on Integrated Guidelines for Cardiovascular Health and Risk Reduction in Children and Adolescents. Pediatrics 2011;128:S213 2. NCEP Expert Panel. Circulation 2004;110:227 Current Interpretive Data was last revised on 2017. Testing performed by: [facility], [address] [place] [address]., [id number] Triglycerides 89 <=149 mg/dL [facility] Comment: Interpretive Data Ages < or = 9 years Acceptable: <75 mg/dL Borderline high: 75-99 mg/dL High: >or= 100 mg/dL Ages 10 to 20 years Acceptable: <90 mg/dL Borderline high: 90-129 mg/dL High: >or= 130 mg/dL Ages > or = 20 years Desirable: <150 mg/dL Borderline high: 150-199 mg/dL High: 200-499 mg/dL Very high: >or= 499 mg/dL Literature References: 1. Expert Panel on Integrated Guidelines for Cardiovascular Health and Risk Reduction in Children and Adolescents. Pediatrics 2011;128:S213 2. NCEP Expert Panel. Circulation 2004;110:227 Current Interpretive Data was last revised on 2017. Testing performed by: [facility], [address] [place] [address]., [id number] HDL 42 >=40 mg/dL [facility] Comment: Interpretive Data Ages < or = 19 years Acceptable: >45 mg/dL Borderline low: 40-45 mg/dL Low: <40 mg/dL Ages > or = 20 years Desirable: >or= 60 mg/dL Low: <40 mg/dL Literature References: 1. Expert Panel on Integrated Guidelines for Cardiovascular Health and Risk Reduction in Children and Adolescents. Pediatrics 2011;128:S213 2. NCEP Expert Panel. Circulation 2004;110:227 Current Interpretive Data was last revised on 2017. Testing performed by: [facility], [address] [place] [address]., [id number] LDL, calculated 111 <=129 mg/dL [facility] Comment: Interpretive Data Ages < or = 19 years Acceptable: <110 mg/dL Borderline high: 110-129 mg/dL High: >or= 130 mg/dL Ages > or = 20 years Optimal: <100 mg/dL Near optimal: 100-129 mg/dL Borderline high: 130-159 mg/dL High: >160 mg/dL Literature References: 1. Expert Panel on Integrated Guidelines for Cardiovascular Health and Risk Reduction in Children and Adolescents. Pediatrics 2011;128:S213 2. NCEP Expert Panel. Circulation 2004;110:227 Current Interpretive Data was last revised on 2017. Testing performed by: [address] [address] Non-HDL Cholesterol 129 mg/dL [facility] Comment: Interpretive Data Ages < or = 19 years Acceptable: <120 mg/dL Borderline high: 120-144 mg/dL High: >145 mg/dL Ages > or = 20 years When triglycerides are >200 mg/dL, Non-HDL cholesterol is a secondary target of therapy with treatment goals that are 30 mg/dL greater than the LDL cholesterol target. Literature References: 1. Expert Panel on Integrated Guidelines for Cardiovascular Health and Risk Reduction in Children and Adolescents. Pediatrics 2011;128:S213 2. NCEP Expert Panel. Circulation 2004;110:227 Current Interpretive Data was last revised on 2017. Testing performed by: [facility], [address] [place] [address]., [id number] Chol/HDL ratio 4 [facility] Comment:Testing performed by : [address] [id number] Blood 08/22/2022 5:22 AM CDT 08/23/2022 10:39 AM CDT Gilson Tamez MD LAB BLOOD ORDERABLES Final Re sult [facility] Department [place] [address] from Last 3 Months or Most Recently Relevant to Health Maintenance Insurance [facility] Advance Directives For more information, please contact: [phone] * Full Code (Latest Code Status on File) Date Activated Date Inactivated Comments 10/30/2023 2:02 PM 11/02/2023 8:10 PM * Full Code Date Activated Date Inactivated Comments 08/23/2022 4:36 AM 08/28/2022 3:46 PM * Full Code Date Activated Date Inactivated Comments 07/24/2022 6:49 AM 07/26/2022 8:00 PM * Full Code Date Activated Date Inactivated Comments 04/30/2022 1:34 PM 05/02/2022 4:27 PM * Full Code Date Activated Date Inactivated Comments 04/30/2022 1:32 PM 04/30/2022 1:34 PM Care Teams Aircraft Systems Technician Relationship Specialty Start Date End Date Unknown, Notinfile PCP - General 07/26/22
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
--- OUTSIDE RECORDS SUMMARY | 2024-09-28 07:42 | XMS_ITS | Patient Health Record ---
Author Organization [facility] Address [address] [place] [address] Care Team Providers Care Integrated Logistics Support Manager Name Role Phone Nia Terry Primary Care Provider [phone] Reason For Referral No Information Medications Medication SIG (Take, Route, Frequency, Duration) Notes Start Date End Date Status Depakote 250 MG take 1 tablet (250MG ) by oral route 2 times every day Oral ([facility]) 05/31/2012 Active ProAir HFA 108 (90 Base) MCG/ACT inhale 2 puff by inhalation route every 4 - 6 hours as needed Inhalation ([facility]) 02/14/2012 Active Cephalexin 500 MG take 1 capsule (500M G) by oral route every 12 hours Oral ([facility]) 06/12/2012 Active Singulair 5 MG chew 1 tablet ( 5 MG ) by oral route every day in the evening Oral ([facility]) 05/31/2012 Active RisperDAL 1 MG take 1 tablet by ora l route 2 times every day Oral ([facility]) Active traZODone HCl 100 MG take 2 Tablet (200M G) by oral route every bedtime after meals Oral ([facility]) 05/31/2012 Active Problems Problem Type SNOMED Code ICD Code Onset Dates Problem Status W/U Status Risk Notes Problem Bipolar disorder (25684133) Bipolar disorder, unspecified (296.80) 02/14/20 12 Active confirmed ([facility]) Added By: Adriana Warren Problem Posttraumatic stress disorder (70750647) Posttraumatic stress disorder (309.81) 02/14/20 12 Active confirmed ([facility]) Added By: Adriana Warren Problem Allergic asthma without status asthmaticus (disorder) (18463572) Extrinsic asthma, unspecified (493.00) 04/11/18 89 Active confirmed ([facility]) Added By: Katya Hanson Plan Of Treatment No Information
--- OUTSIDE RECORDS SUMMARY | 2024-09-28 07:42 | XMS_ITS | Referral Summary ---
Author Organization [facility] Address [address] [place] [address] Care Team Providers Care Manager Printing Name Role Phone Unknown, Notinfile Primary Care [...] suboxone -councelling on opioid use disorder cessation -[facility] conslt done Assessment & Plan (08/24/2022 11:16 AM CDT): Daily snorting of fentanyl. Last time was night prior to discharge. Pt having withdrawal symptoms. Declined suboxone given GI SE (unclear if true SE or precipitated withdrawal). Pt interested in methadone. Spoke to yesiy and SW and trying to facilitate to treat inpatient and set up outpatient [facility] f/u. -pt started on methadone 10 BID Assessment & Plan (08/24/2022 2:58 PM CDT): Fair progress - no withdrawal sx -- cannot stay on methadone as he does not have an OP provider. Does not want to take suboxone. Plan - taper methadone then stop it - pt is not interested in suboxone -councelling on opioid use disorder cessation -[facility] conslt done Encephalopathy 07/24/2022 Hypertension, unspecified type [...] nausea/diarrhea Atarax 25mg TID PRN for anxiety Social History Tobacco Use Types Packs/Day Years Used Date Smoking Tobacco: Every Day Cigarettes 0.5 20 Tobacco Cessation:Ready to Q uit: No; Counseling Given: Yes Alcohol Use Standard Drinks/Week Comments Not Currently 0 (1 standard drink = 0.6 oz pur e alcohol) [facility] [employer] Answer Date Recorded In the past 12 months has [employer], [employer], oil, or water [employer] threatened to shut off services in your [...] week 11/01/2023 How often do you attend [facility] or alevism services? Never 11/01/2023 Do you belong to any clubs o r organizations such as restorationism groups, unions, fraternal or athletic groups, or [...] care, and heating? Not very hard 11/01/2023 [facility] - Occupational Stress Questionnaire Answer Date Recorded [...] place to sleep or slept in a half-way (including now)? No 07/25/2022 Housing Stability Vital Sign Answer Saji e Recorded In the last 12 months, was t here a time when you were not able to pay the mortgage or rent on time? No 11/01/2023 In the past 12 months, how m any times have you moved where you were living? 0 11/01/2023 At any time in the past 12 m [facility], were you homeless or living in a half-way (including now)? No 11/01/2023 Personal Safety Answer Date Recorded Have you ever been in or are you currently in a harmful physical or emotional relationship or is someone making you feel afraid or unsafe? 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 The CKD-EPI equation should not be used for patients with unstable renal function and has not been validated in children and those over 70. Current interpretive data was last reviewed 2021. Blood 11/01/2023 5:22 AM CDT 11/01/2023 5:44 AM CDT us Ino Ortega NP LAB BLOOD ORDERABLES Final R esult [facility] [address] [place] [address] * (ABNORMAL) Hemoglobin A1c (10/30/2023 7:31 AM CDT) Hgb A1C 7.4(H) 4.0 - 5.6 % Estimated Average Glucose 166 mg/dL [facility] Comment: The ADA recommends reporting an estimated Average Glucose (eAG) with all Hemoglobin A1c results using the equation derived from a study of 507 normal and diabetic adults. Minority populations were underrepresented and children were not included. (Diabetes Care 31:2219-5804, 2008). The eAG is not equivalent to a fasting glucose. Blood 10/30/2023 7:31 AM CDT 10/31/2023 3:34 PM CDT us Julissa Batista MD LAB BLOOD ORDERABLES Final Re sult [facility] [address] [facility] Department [place] [address] * Lipid panel (08/22/2022 5:22 AM CDT) Cholesterol 171 30 - 199 mg/dL [facility] Comment: Interpretive Data Ages < or = [...] last revised on 2017. Testing performed by: [address] [address] Triglycerides 89 <=149 mg/dL [facility] Comment: Interpretive Data Ages < [...] last revised on 2017. Testing performed by: [facility], [address] [place] [address]., [address] HDL 42 >=40 mg/dL [facility] Comment: Interpretive Data Ages < [...] last revised on 2017. Testing performed by: [address] [address] LDL, calculated 111 <=129 mg/dL [facility] Comment: Interpretive Data Ages < [...] last revised on 2017. Testing performed by: [address] [address] Non-HDL Cholesterol 129 mg/dL [facility] Comment: Interpretive Data Ages < [...] last revised on 2017. Testing performed by: [address] [address] Chol/HDL ratio 4 [facility] Comment:Testing performed by : [address] [address] Blood 08/22/2022 5:22 AM CDT 08/23/2022 10:39 AM CDT Gilson Tamez MD LAB BLOOD ORDERABLES Final Re sult [facility] [place] [address] from Last 3 Months or Most Recently Relevant to Health Maintenance Insurance [employer] [place] Advance Directives For more information, please contact: [phone] * Full Code (Latest Code Status on [...] 1:32 PM 04/30/2022 1:34 PM Care Teams Manager Printing Relationship Specialty Start Date End Date Unknown, Notinfile PCP - General 07/26/22
--- OUTSIDE RECORDS SUMMARY | 2024-09-28 07:42 | XMS_ITS | Clinical Summary ---
Author Organization [facility] Address [address] [place] [address] Phone Care Team Providers Care Technical Illustrator Name Role Phone Unavailable Primary Care Provider Unavailabl e Allergies No known active allergies Medications cyclobenzaprine (FLEXERIL) 5 mg Tablet Take 1 Tablet (5 mg) by mouth every 8 hours as needed for muscle aches/spasms 6 Tablet 08/27/2023 10:46 AM CDT 4 Active dicyclomine (BENTYL) 10 mg capsule Take 2 Capsules (20 mg) by mouth every 6 hours as needed for stomach cramps 10 Capsule 08/27/2023 10:46 AM CDT 4 Active hydrOXYzine HCL (ATARAX) 50 mg tablet Take 1 Tablet (50 mg) by mouth every 6 hours as needed for Anxiety. 12 Tablet 08/27/2023 10:46 AM CDT 4 Active ondansetron (ZOFRAN ODT) 4 mg Tablet, Rapid Dissolve Dissolve 1 Tablet (4 mg) on top of tongue then swallow with saliva every 6 hours as needed for Nausea/Vomiting 12 Tablet 4 Active traZODone (DESYREL) 50 mg tablet Take 1 Tablet (50 mg) by mouth nightly as needed for Insomnia. 12 Tablet 08/27/2023 10:46 AM CDT 4 Active naloxone (NARCAN) 4 mg/spray [place], Non-Aerosol EMERGENCY USE ONLY: Administer 1 spray (4 mg) in one nostril one time. May repeat in alternating nostrils every 2-3 min until responsive or EMS arrives. 2 Each 3 4 Active Active Problems Problem Noted Date Diagnosed Date Opioid use disorder 08/23/2023 Type 2 diabetes mellitus with hyperglycemia 08/10 Benign hypertension 08/23/2023 Mood disorder 08/23/2023 Polysubstance abuse 08/23/2023 Resolved Problems Problem Noted Date Diagnosed Date Resolved Date [place] (acute kidney injury) 08/24/2023 Opiate withdrawal 08/23/2023 08/27/2023 Encounters Date Type Department Care Team Description 09/02/2024 External Device Data [facility] ABSTRACTION Provider, Abstract 08/26/2024 External Device Data [facility] ABSTRA[facility] Provider, Abstract 08/19/2024 External Device Data [facility] Provider, Abstract 08/19/2024 External Device Data [facility] Provider, Abstract 2024 External Device Data [facility] Provider, Abstract 07/31/2024 External Device Data [facility] Provider, Abstract 07/30/2024 External Device Data [facility] ABSTRACTION Provider, Abstract from Last 3 Months Social History Tobacco Use Types Packs/Day Years Used Date Smoking Tobacco: Every Day Cigarettes Tobacco Cessation:Ready to Q uit: Not Asked; Counseling Given: Not Answered Sex and Gender Information Value Date Recorded Sex Assigned at Not on file Legal Sex Male 12:09 PM CDT Gender Identity Not on file Sexual Orientation Not on file Last Filed Vital Signs Vital Sign Reading Time Taken Comments Blood Pressure 152/99 08/27/2023 11:53 AM CDT Pulse 100 08/27/2023 11:53 AM CDT Temperature 36.9 C (98.4 F) 08/27/2023 11:53 AM CDT Respiratory Rate 18 08/27/2023 11:53 AM CDT Oxygen Saturation 97% 08/27/2023 11:53 AM CDT Inhaled Oxygen Concentration - - Weight 122.5 kg (270 lb) 08/24/2023 7:43 PM CDT Height 185.4 cm (6' 1) 08/24/2023 7:43 PM CDT Body Mass Index 35.62 08/24/2023 7:43 PM CDT Plan of Treatment Health Maintenance Due Date Last Done Comments DIABETES ANNUAL FOOT EXAM 1994 DIABETES ANNUAL RETINAL EXAM 1994 DIABETES MICROALBUMIN ANNUAL SCREEN 1994 LDL CHOLESTEROL ANNUAL 1994 DTAP/TDAP/TD VACCINES (1 - Tdap) 08/06/1995 HEPATITIS B VACCINES (1 of 3 - 19+ 3-dose series) 07/11 COLORECTAL SCREENING 2021 Colorectal Cancer Screening 2021 FIT-DNA Q 3 years 2021 FIT/FOBT Q 1 year 2021 Flex Sig/CT Colonography Q 5 years 2021 DIABETES HBA1C Q 6 MONTHS 10/29/2022 05/01/2022 INFLUENZA VACCINE (#1) 2024 12/01/2014 Insurance RX [facility] Commercial Advance Directives For more information, please contact: [phone] * Full Code (Latest Code Status on File) Date Activated Date Inactivated Comments 08/23/2023 2:27 PM 08/27/2023 3:38 PM * Default Full Code - Needs Discussion Date Activated Date Inactivated Comments 08/23/2023 1:30 PM 08/23/2023 2:27 PM
[2024-09-28 07:49] VITALS: BP 165/112; PULSE 76; RESP 15; TEMP 36.7; O2SAT 95
[2024-09-28 07:53] VITALS: BP 165/112; PULSE 81; RESP 14; O2SAT 97
[2024-09-28 08:01] VITALS: BP 184/110; PULSE 80; RESP 13; O2SAT 96
[2024-09-28 08:06] LABS: Add Urine Microscopic? NO; Appearance Urine Clear (Clear); Glucose Urine UA 3+ mg/dL (Negative); Leukocyte Esterase Ur Negative LEU/UL (Negative); Nitrate Urine Negative (Negative); Specific Grav Ur 1.043 (1.001-1.035)
--- OUTSIDE RECORDS SUMMARY | 2024-09-28 08:06 | XMS_ITS | Referral Summary ---
Author Organization [facility] Address [address] [place] [address] Care Team Providers Care Assistant Engineer Name Role Phone Unknown, Notinfile Primary Care [...] suboxone -councelling on opioid use disorder cessation -[facility] conslt done Assessment & Plan (08/24/2022 11:16 AM CDT): Daily snorting of fentanyl. Last time was night prior to discharge. Pt having withdrawal symptoms. Declined suboxone given GI SE (unclear if true SE or precipitated withdrawal). Pt interested in methadone. Spoke to yesiy and SW and trying to facilitate to treat inpatient and set up outpatient [facility] f/u. -pt started on methadone 10 BID Assessment & Plan (08/24/2022 2:58 PM CDT): Fair progress - no withdrawal sx -- cannot stay on methadone as he does not have an OP provider. Does not want to take suboxone. Plan - taper methadone then stop it - pt is not interested in suboxone -councelling on opioid use disorder cessation -[facility] conslt done Encephalopathy 07/24/2022 Hypertension, [...] drink = 0.6 oz pur e alcohol) [facility] Mashworkities Answer Date Recorded In the past 12 months has [employer], [employer], oil, or water [employer] threatened to shut off services in your [...] week 11/01/2023 How often do you attend [facility] or religion services? Never 11/01/2023 Do you belong to any clubs o r organizations such as adventist groups, unions, fraternal or athletic groups, or [...] care, and heating? Not very hard 11/01/2023 [facility] - Occupational [...] place to sleep or slept in a chcf (including now)? No 07/25/2022 Housing Stability Vital [...] time in the past 12 m [facility], were you homeless or living in a chcf (including now)? No 11/01/2023 Personal Safety Answer Date Recorded Have you ever been in or are you currently in a harmful physical or emotional relationship or is someone making you feel afraid or unsafe? 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 Minority populations were underrepresented and children were not included. (Diabetes Care 31:9052-6497, 2008). The eAG is not equivalent to a fasting glucose. Blood 10/30/2023 7:31 AM CDT 10/31/2023 3:34 PM CDT us Julissa Batista MD LAB BLOOD ORDERABLES Final Re sult KENYA [address] [facility] Department [place] [address] * Lipid panel (08/22/2022 5:22 AM CDT) Cholesterol 171 30 - 199 mg/dL [facility] Comment: Interpretive Data Ages < or = [...] last revised on 2017. Testing performed by: [address] [address] Triglycerides 89 <=149 mg/dL [facility] Comment: Interpretive Data Ages < [...] last revised on 2017. Testing performed by: [facility], [address] [place] [address]., [address] HDL 42 >=40 mg/dL [facility] Comment: Interpretive Data Ages < [...] last revised on 2017. Testing performed by: [address] [address] LDL, calculated 111 <=129 mg/dL [facility] Comment: Interpretive Data Ages < [...] last revised on 2017. Testing performed by: [address] [address] Non-HDL Cholesterol 129 mg/dL [facility] Comment: Interpretive Data Ages < [...] last revised on 2017. Testing performed by: [address] [address] Chol/HDL ratio 4 [facility] Comment:Testing performed by : [address] [address] Blood 08/22/2022 5:22 AM CDT 08/23/2022 10:39 AM CDT Gilson Tamez MD LAB BLOOD ORDERABLES Final Re sult [facility] Department [place] [address] from Last 3 Months or Most Recently Relevant to Health Maintenance Insurance [employer] [place] Advance Directives For more information, please contact: [phone] * Full Code (Latest Code Status on [...] 1:32 PM 04/30/2022 1:34 PM Care Teams Assistant Engineer Relationship Specialty Start Date End Date Unknown, Notinfile PCP - General 07/26/22
--- OUTSIDE RECORDS SUMMARY | 2024-09-28 08:06 | XMS_ITS | Clinical Summary ---
Author Organization [facility] Address [address] [place] [address] Care Team Providers Care Dental Ceramist Name Role Phone Unknown, Notinfile Primary Care [...] suboxone -councelling on opioid use disorder cessation -[facility] conslt done Assessment & Plan (08/24/2022 11:16 AM CDT): Daily snorting of fentanyl. Last time was night prior to discharge. Pt having withdrawal symptoms. Declined suboxone given GI SE (unclear if true SE or precipitated withdrawal). Pt interested in methadone. Spoke to yesiy and SW and trying to facilitate to treat inpatient and set up outpatient [facility] f/u. -pt started on methadone 10 BID Assessment & Plan (08/24/2022 2:58 PM CDT): Fair progress - no withdrawal sx -- cannot stay on methadone as he does not have an OP provider. Does not want to take suboxone. Plan - taper methadone then stop it - pt is not interested in suboxone -councelling on opioid use disorder cessation -[facility] conslt done Encephalopathy 07/24/2022 Hypertension, unspecified type [...] drink = 0.6 oz pur e alcohol) [facility] Reply.ioities Answer Date Recorded In the past 12 months has e [employer], [employer], or water [employer] threatened to shut off services in your [...] week 11/01/2023 How often do you attend [facility] or rastafari services? Never 11/01/2023 Do you belong to any clubs o r organizations such as yarsani groups, unions, fraternal or athletic groups, or [...] care, and heating? Not very hard 11/01/2023 [facility] - Occupational Stress Questionnaire Answer Date Recorded [...] place to sleep or slept in a assisted (including now)? No 07/25/2022 Housing Stability Vital Sign Answer Saji e Recorded In the last 12 months, was t here a time when you were not able to pay the mortgage or rent on time? No 11/01/2023 In the past 12 months, how m any times have you moved where you were living? 0 11/01/2023 At any time in the past 12 m [facility], were you homeless or living in a assisted (including now)? No 11/01/2023 Personal Safety Answer Date Recorded Have you ever been in or are you currently in a harmful physical or emotional relationship or is someone making you feel afraid or unsafe? 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 Gender Identity Not on file Sexual Orientation [...] CDT 11/01/2023 5:44 AM CDT Ino Ortega HOSE SUSPENDER CUTTER LAB BLOOD ORDERABLES Final R esult Performing Organization Address [facility] de Phone Number [facility] [address] Department of [employer] [place] [address] * (ABNORMAL) Hemoglobin A1c (10/30/2023 7:31 AM CDT) Hgb A1C 7.4(H) 4.0 - 5.6 % Estimated Average Glucose 166 mg/dL [facility] Comment: The ADA recommends reporting an estimated Average Glucose (eAG) with all Hemoglobin A1c results using the equation derived from a study of 507 normal and diabetic adults. Minority populations were underrepresented and children were not included. (Diabetes Care 31:2927-7957, 2008). The eAG is not equivalent to a fasting glucose. Blood 10/30/2023 7:31 AM CDT 10/31/2023 3:34 PM CDT Julissa Batista MD LAB BLOOD ORDERABLES Final Re sult Performing Organization Address [facility] de Phone Number [facility] [address] [place] [address] * Lipid panel (08/22/2022 5:22 AM CDT) [...] last revised on 2017. Testing performed by: [facility], [address] [place] [address]., [address] Triglycerides 89 <=149 mg/dL [facility] [...] last revised on 2017. Testing performed by: [facility], [address] [place] [address]., [address] HDL 42 >=40 mg/dL [facility] [...] last revised on 2017. Testing performed by: [facility], [address] [place] [address]., [address] LDL, calculated 111 <=129 mg/dL [facility] [...] last revised on 2017. Testing performed by: [address] [address] Non-HDL Cholesterol 129 mg/dL [facility] [...] last revised on 2017. Testing performed by: [facility], [address] [place] [address]., [address] Chol/HDL ratio 4 [facility] Comment:Testing performed by : [address] [address] Blood 08/22/2022 5:22 AM CDT 08/23/2022 10:39 AM CDT Gilson Tamez MD LAB BLOOD ORDERABLES Final Re sult [facility] Department [place] [address] from Last 3 Months or Most Recently Relevant to Health Maintenance Insurance [facility] Advance Directives For more information, please contact: [phone] * Full Code (Latest Code Status on [...] 1:32 PM 04/30/2022 1:34 PM Care Teams Dental Ceramist Relationship Specialty Start Date End Date Unknown, Notinfile PCP - General 07/26/22
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
--- NOTE | 2024-09-28 08:07 | ED_ITS ---
HPI - Male Genitourinary General Chief complaint: Urogenital-Male Stated complaint: FREQ URINATION, DIABETIC Time Seen by Provider: 09/28/24 07:49 Source: patient and other (mother of children Estuardo) Mode of arrival: ambulatory Limitations: no limitations History of Present Illness HPI Narrative: Patient presents with report of frequent urination to the point of incontinence. In general he has been feeling very fatigued and weak. The symptoms have been going on for approximately 1 month. He also started having dysuria although he denies any hematuria. He states he was diagnosed with herpes 20 years ago but has not had any outbreaks. However, the past 3 weeks he feels like he has been having a outburst/flare given sensitivity of his penis and foreskin. He notes that he had been diagnosed with hypertension previously but not currently on any medications. He does not currently have a primary care physician. Similarly, he has been diagnosed with diabetes mellitus but not currently taking any medications. He states previously he had been on med for but he experienced GI upset as well as other side effects and did not find that this agreed with him. The insulin pens that he had been prescribed did seem to be working but he does not currently have any due to no PCP. For the hypertension, he has been trying home remedies such as apple cider vinegar, changing his diet, drinking plenty of water. He notes that every time he drinks water with intent of 20 minutes he has to urinate again. No fevers or chills. 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 He has never been in DKA before. Denies any other penile discharge. No consistent abdominal pain, only occasional pain around the time of urination. He notes that he works a lot. Related Data Home Medications ?Medication ?Instructions ?Recorded ?Confirmed ?Last Taken ?Type alendronate 70 mg-cholecalciferol 1 tablet PO WEEKLY 09/11/19 09/11/19 09/10/19 History (vitamin D3) 2,800 unit tablet amlodipine 5 mg tablet 5 mg PO DAILY 09/11/19 09/11/19 09/11/19 History bupropion HCl 100 mg tablet 100 mg PO DAILY 09/11/19 09/11/19 09/11/19 History cetirizine 10 mg tablet (Zyrtec) 10 mg PO DAILY 09/11/19 09/11/19 09/11/19 History famotidine 20 mg tablet (Pepcid) 20 mg PO BID 09/11/19 09/11/19 09/11/19 History Allergies Allergy/AdvReac Type Severity Reaction Status Date / Time No Known Allergies Allergy Verified 09/28/24 07:40 [facility] Past Medical History Medical History Diabetes mellitus Sleep apnea Hypertension Surgical History Surgical History Hx of chest tube placement No pertinent past surgical history Family History Family History Father Chronic obstructive pulmonary disease Mother Hypertension Diabetes mellitus Social History Social History Smoking status: Light tobacco smoker Tobacco type: cigars Second hand tobacco smoke exposure: Yes Additional smoking assessment comments: 1-2 a week but not consistant Alcohol intake: never Substance use: never Substance use type: does not use Living arrangements: with family Occupation/Education: occupation 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 HEAD: Normocephalic, atraumatic. EYES: Non injected, non icteric ENT: Nares clear, no rhinorrhea or epistaxis. Gross auditory acuity intact. NECK: Supple. No meningismus. CHEST: Speaking in full sentences. No respiratory distress. HEART: Regular rate and rhythm. . ABDOMEN: Obese but Soft, nondistended. No rigidity or guarding. Not peritoneal EXTREMITIES: Normal range of motion. SKIN: Warm, dry. BACK/: No CVA tenderness. No lesions of the penis although there is inflammation of the glans and foreskin with a white discharge through foreskin retracts without evidence of phimosis/paraphimosis. NEURO: No focal deficits. Alert and oriented. Answering questions. Following commands. Normal speech without aphasia or dysarthria. PSYCH: Normal mood and affect. Answering questions appropriately. Course Vital Signs Vital signs: Vital Signs Temperature 98.0 F 09/28/24 07:49 Pulse Rate 76 09/28/24 07:49 Respiratory Rate 15 09/28/24 07:49 Blood Pressure 165/112 H 09/28/24 07:49 Pulse Oximetry 95 09/28/24 07:49 Oxygen Delivery Room Air 09/28/24 07:49 Temperature 98.0 F 09/28/24 07:49 Pulse Rate 70 09/28/24 10:16 Respiratory Rate 20 09/28/24 10:16 Blood Pressure 179/115 H 09/28/24 10:16 Pulse Oximetry 98 09/28/24 10:16 Oxygen Delivery Room Air 09/28/24 07:49 MDM - Male Genitourinary MDM Narrative Medical decision making narrative: This patient is a 49 year old male with past medical history diabetes and HTN not currently on medication for either who comes to the emergency department with a painful swollen penis. In the emergency department he is afebrile hemodynamically stable though with VS notable for HTN. Physical exam suggests balanitis with posthitis, i.e. balanoposthitis, inflammation of the glans and foreskin. Given patient is diabetic and the association with this condition, POC glucose is checked and noted to be 385 mg/dL. Patient is prescribed Sitz baths twice daily/3 times daily will inflammation persists and is counseled on hygiene; cleaning between the foreskin and glans with a Q-tip and irrigating with water total resolution. He is given a prescription for Sitz baths as a DME prescription. He is also prescribed clotrimazole 1% to be applied topically to the glans every 12 hours until resolution topical triple antibiotic ointment 4 times daily. This is explained to him, including in discharge paperwork. Advised follow-up with primary care physician if no resolution as second-line agent would be nystatin cream 100,000 units/g if infection is recurrent after clotrimazole therapy. He has glucosuria as well as trace ketonuria urinalysis but otherwise without marked infection. IV fluids ordered. Hyperglycemia is without anion gap acidosis. Pseudo hyponatremia as it corrects to 139/141 in the setting of blood sugar. He is given a tablet of his previously documented home antihypertensive, 5mg amlodipine daily as well as 6U subQ aspart as this was his documented diabetic med. Will also prescribed the same. Patient also provided refills associated diabetes equipment that is necessary. Beta hydroxybutyrate normal. CT normal as below. Notified by the nurse that the pharmacy called and noted that patient's insurance did not cover prescriptions so preferred pharmacy was changed and all of the prescriptions were represcribed to new location. Differential Diagnosis Differential diagnosis: Likely urinary tract infection, urethritis, genital herpes simplex, acute retention of urine and other (Hyperglycemia, DKA, HHS; balanitis/posthitis/balanoposthitis; phimosis/paraphimosis; kidney stone/infected stone) Lab Data Attestation: I reviewed the patient's lab results. Lab results narrative: CBC generally unremarkable with only mild abnormalities on the differential, notably no leukocytosis, anemia, thrombocytopenia 09/28/24 08:32 09/28/24 08:32 Labs: Lab Results 09/28/24 09/28/24 09/28/24 Range/Units 07:49 07:59 08:32 WBC 5.7 (4.5-10.0) K/mm3 RBC 5.12 (4.6-6.20) M/mm3 Hgb 15.2 (14.0-18.0) g/dL Hct 44.5 (42.0-52.0) % MCV 86.9 (80-100) fl MCH 29.7 (26-34) pg MCHC 34.2 (32-36) g/dl RDW 13.2 (11.5-14.5) % Plt Count 230 (150-375) k/mm3 MPV 11.6 H (7.4-10.4) fl Immature Gran % (Auto) 0.7 H (0-0.5) % Neut % (Auto) 62.3 (45.5-73.1) % Lymph % (Auto) 27.3 (18.3-44.2) % [place] % (Auto) 6.9 (2.6-8.5) % Eos % (Auto) 1.9 (0-4.4) % Baso % (Auto) 0.9 (0.2-1.2) % Lymph # (Auto) 1.55 (0.9-3.2) K/mm3 [place] # (Auto) 0.4 (0.1-0.6) K/mm3 Eos # (Auto) 0.1 (0-0.3) K/mm3 Baso # (Auto) 0.1 (0.0-0.1) K/mm3 Abs Immat Gran (auto) 0.04 H (0.00-0.031) K/mm3 Absolute Neuts (auto) 3.5 (1.3-6.7) K/mm3 Absolute Nucleated RBC 0.000 (0.0-0.012) K/mm3 Nucleated RBC % 0.0 (0.0-0.2) % Sodium 134 L (137-145) mmol/L Potassium 4.6 (3.4-5.0) mmol/L Chloride 104 (98-107) mmol/L Carbon Dioxide 25 (22-30) mmol/L Anion Gap 5 (4-12) mmol/L BUN 14 (9-20) mg/dL Creatinine 0.96 (0.7-1.3) mg/dL Estim Creat Clear Calc 121 ml/min Estimated GFR > 60 (59 - ) Glucose 385 H (65-110) mg/dL POC Capillary Glucose 385 H (65-105) mg/dl Calcium 9.1 (8.4-10.2) mg/dL Total Bilirubin 0.8 (0.2-1.3) mg/dL AST 30 (17-59) U/L ALT 24 (6-50) U/L Alkaline Phosphatase 83 (38-126) U/L Total Protein 7.8 (6.3-8.2) g/dL Albumin 4.2 (3.5-5.1) g/dL Beta-Hydroxybutyrate/Acetoacetate 0.19 (0.02-0.27) mmol/L Urine Color Yellow (Yellow) Urine Appearance Clear (Clear) Urine pH 6.0 (5.0-9.0) Ur Specific [place] 1.043 H (1.001-1.035) Urine Protein Negative (Negative) mg/dL Urine Glucose (UA) 3+ H (Negative) mg/dL Urine Ketones Trace H (Negative) mg/dL Ur Blood (Man) Negative (Negative) Urine Nitrate Negative (Negative) Urine Bilirubin Negative (Negative) Urine Urobilinogen 1.0 (<2.0) mg/dL Leukocyte Esterase Rfl Negative (Negative) ATUL/UL 07/20/25 Range/Units 09:50 WBC (4.5-10.0) K/mm3 RBC (4.6-6.20) M/mm3 Hgb (14.0-18.0) g/dL Hct (42.0-52.0) % MCV (80-100) fl MCH (26-34) pg MCHC (32-36) g/dl RDW (11.5-14.5) % Plt Count (150-375) k/mm3 MPV (7.4-10.4) fl Immature Gran % (Auto) (0-0.5) % Neut % (Auto) (45.5-73.1) % Lymph % (Auto) (18.3-44.2) % [place] % (Auto) (2.6-8.5) % Eos % (Auto) (0-4.4) % Baso % (Auto) (0.2-1.2) % Lymph # (Auto) (0.9-3.2) K/mm3 [place] # (Auto) (0.1-0.6) K/mm3 Eos # (Auto) (0-0.3) K/mm3 Baso # (Auto) (0.0-0.1) K/mm3 Abs Immat Gran (auto) (0.00-0.031) K/mm3 Absolute Neuts (auto) (1.3-6.7) K/mm3 Absolute Nucleated RBC (0.0-0.012) K/mm3 Nucleated RBC % (0.0-0.2) % Sodium (137-145) mmol/L Potassium (3.4-5.0) mmol/L Chloride (98-107) mmol/L Carbon Dioxide (22-30) mmol/L Anion Gap (4-12) mmol/L BUN (9-20) mg/dL Creatinine (0.7-1.3) mg/dL Estim Creat Clear Calc ml/min Estimated GFR (59 - ) Glucose (65-110) mg/dL POC Capillary Glucose 349 H (65-105) mg/dl Calcium (8.4-10.2) mg/dL Total Bilirubin (0.2-1.3) mg/dL AST (17-59) U/L ALT (6-50) U/L Alkaline Phosphatase (38-126) U/L Total Protein (6.3-8.2) g/dL Albumin (3.5-5.1) g/dL Beta-Hydroxybutyrate/Acetoacetate (0.02-0.27) mmol/L Urine Color (Yellow) Urine Appearance (Clear) Urine pH (5.0-9.0) Ur Specific [place] (1.001-1.035) Urine Protein (Negative) mg/dL Urine Glucose (UA) (Negative) mg/dL Urine Ketones (Negative) mg/dL Ur Blood (Man) (Negative) Urine Nitrate (Negative) Urine Bilirubin (Negative) Urine Urobilinogen (<2.0) mg/dL Leukocyte Esterase Rfl (Negative) ATUL/UL Imaging Data Radiologist's impression: Impressions Abdomen/Pelvis CT 09/28/24 09:46 Impression: No significant abnormalities seen. Discharge Plan Discharge Clinical Impression: Balanoposthitis, Frequent urination, Dysuria, Hypertension, Hyperglycemia due to diabetes mellitus, Glucosuria, Pseudohyponatremia, Encounter for medication refill Patient Disposition: Home Condition: Stable Instructions: Antibiotic Form, Dysuria (ED), Hypertension (ED), Sitz Bath (DC), Diabetic Hyperglycemia (ED), Urinary Urgency and Frequency (DC), Hypertension and Diabetes (ED), Balanoposthitis (ED) Additional Instructions: Pyridium/phenazopyridine can help with the pain in your penis with urination. It can discolor your urine and tears (turn them orange). Do not wear contact lenses while taking this medication. You received your first dose in the ED. You have been prescribed Sitz baths twice daily/3 times daily while inflammation persists. Good hygiene is important, cleaning between the foreskin and glans with a Q-tip and irrigating with water until total resolution. Use the clotrimazole 1% to be applied topically to the glans every 12 hours until resolution and topical triple antibiotic ointment 4 times daily. Good blood pressure and diabetes control are also important. You are being prescribed the medications you used to take for this and referral to a primary care physician for continued management. Return to the emergency department with any new or worsening symptoms Patient Language: Maltese Prescriptions: New phenazopyridine [Pyridium] 100 mg tablet 100 mg PO TID PRN (Reason: pain) Qty: 5 0RF clotrimazole 1 % lotion 1 applic topical BID 14 Days Qty: 30 0RF Rx Instructions: apply to glans of penis Triple Antibiotic 3.5mg-400 unit- 5,000 unit/gram ointment 1 applic topical QID Qty: 14 0RF Rx Instructions: apply to penis amlodipine 5 mg tablet 5 mg PO DAILY 30 Days Qty: 30 0RF (DME) lancets [Accu-Chek Softclix Lancets] Misc See Rx Instructions .Route Qty: 100 0RF Rx Instructions: As directed (DME) insulin syringe-needle U-100 0.3 mL 29 gauge x 1/2 syringe See Rx Instructions .Route Qty: 100 0RF Rx Instructions: As directed insulin aspart U-100 100 unit/mL solution 6 unit subcut TID Qty: 10 0RF Rx Instructions: with meals (DME) blood sugar diagnostic Strip See Rx Instructions .Route Qty: 30 0RF Rx Instructions: As directed amlodipine 5 mg tablet 5 mg PO DAILY 30 Days Qty: 30 0RF clotrimazole 1 % lotion 1 applic topical BID 14 Days Qty: 30 0RF insulin aspart U-100 100 unit/mL solution 6 unit subcut TID Qty: 10 0RF Rx Instructions: with meals phenazopyridine [Pyridium] 100 mg tablet 100 mg PO TID PRN (Reason: pain) Qty: 5 0RF Rx Instructions: rec'd first dose in ED Triple Antibiotic 3.5mg-400 unit- 5,000 unit/gram ointment 1 applic topical QID Qty: 14 0RF (DME) blood sugar diagnostic Strip See Rx Instructions .Route Qty: 50 0RF Rx Instructions: As directed (DME) insulin syringe-needle U-100 0.3 mL 29 gauge syringe See Rx Instructions .Route Qty: 100 0RF Rx Instructions: As directed (DME) lancets [Accu-Chek Softclix Lancets] Misc See Rx Instructions .Route Qty: 100 0RF Rx Instructions: As directed No Action cetirizine [Zyrtec] 10 mg Tablet 10 mg PO DAILY amlodipine 5 mg Tablet 5 mg PO DAILY bupropion HCl 100 mg Tablet 100 mg PO DAILY famotidine [Pepcid] 20 mg Tablet 20 mg PO BID alendronate-vitamin D3 70 mg- 2,800 unit Tablet 1 tablet PO WEEKLY Rx Instructions: on sunday (DME) lancets [Accu-Chek Softclix Lancets] Misc See Rx Instructions .ROUTE .MEDSUPPLY Qty: 50 0RF Rx Instructions: As directed (DME) lancets [BD Ultra Fine Lancets] 33 gauge misc See Rx Instructions .ROUTE .MEDSUPPLY Qty: 100 0RF Rx Instructions: As directed (DME) OneTouch Verio test strips Strip Qty: 10 9RF Rx Instructions: As Directed (DME) insulin syringe-needle U-100 [BD Insulin Syringe] 1 mL 29 gauge x 1/2 Syringe Qty: 1 0RF Rx Instructions: As Directed insulin aspart U-100 [Novolog U-100 Insulin aspart] 100 unit/mL Solution 6 unit SUBCUT TIDWM Qty: 10 0RF (DME) insulin syringes (disposable) 1 mL syringe See Rx Instructions .ROUTE .MEDSUPPLY Qty: 500 0RF Rx Instructions: As directed Follow-up/Referrals: PHYSICIAN,MUD ANALYSIS OPERATOR [Primary Care Provider] - Sal Ford MD [Physician] - Stand Alone Forms: Work/School Release IP Time of Disposition: 10:04
--- OUTSIDE RECORDS SUMMARY | 2024-09-28 08:07 | XMS_ITS | Clinical Summary ---
Author Organization [facility] Address [address] [place] [address] Phone Care Team Providers Care Assistant Manager Airside Operations Name Role Phone Unavailable Primary Care Provider [...] CDT 4 Active naloxone (NARCAN) 4 mg/spray [place], Non-Aerosol EMERGENCY USE ONLY: Administer 1 spray [...] Advance Directives For more information, please contact: [phone] * Full Code (Latest Code Status on File) Date Activated Date Inactivated Comments 08/23/2023 2:27 PM 08/27/2023 3:38 PM * Default Full Code - Needs Discussion Date Activated Date Inactivated Comments 08/23/2023 1:30 PM 08/23/2023 2:27 PM
--- OUTSIDE RECORDS SUMMARY | 2024-09-28 08:07 | XMS_ITS | Continuity of Care Document ---
Author Organization [facility] Address [address] [place] [address] Phone Care Team Providers Care Career Development Counselor Name Role Phone Onyefl DNP MPH SOLDER TECHNICIAN BC, Otuomasirichi Unavailable Unavailable Allergies, Adverse Reactions, [...] ng/mL <500 Final Performed by:Hilary Segura ()[address] [place] [address] medMATCH Alcohol Metab 12:38: 00 DNR N Final Performed by:Hilary Segura ()[address] [place] [address] Ethyl Glucuronide (ETG) 12:38: 00 DNR ng/mL N Final Performed by:Hilary Segura ()[address] [place] [address] medMATCH ETG 12:38: 00 DNR N Final Performed by:Hilary Segura ()[address] [place] [address] Ethyl Sulfate (ETS) 12:38: 00 DNR ng/mL N Final Performed by:Hilary Segura ()[address] [place] [address] medMATCH ETS 12:38: 00 DNR N Final Performed by:Hilary Segura ()[address] [place] [address] Alcohol Metab Comments 12:38: 00 DNR N Final Performed by:Hilary Segura ()[address] [place] [address] Amphetamines 12:38: 00 NEGATIVE ng/mL <500 Final Performed by:Hilary villaBlinkbuggyEllie Segura ()[address] [email or web address] [address] medMATCH Amphetamines 12:38: 00 DNR N Final Performed by:Hilary villaBlinkbuggyEllie Segura ()[address] [email or web address] [address] Amphetamine 12:38: 00 DNR ng/mL N Final Performed by:Hilary Segura ()[address] [place] [address] medMATCH Amphetamine 12:38: 00 DNR N Final Performed by:Hilary Segura ()[address] [place] [address] Methamphetamine 12:38: 00 DNR ng/mL N Final Performed by:Hilary Segura ()[address] [place] [address] medMATCH Methamphetamine 12:38: 00 DNR N Final Performed by:Hilary Segura ()[address] [place] [address] Amphetamines Comments 12:38: 00 DNR N Final Performed by:Hilary Segura ()[address] [place] [address] Benzodiazepines 12:38: 00 NEGATIVE ng/mL <100 Final Performed by:Hilary Segura ()[address] [place] [address] medMATCH Benzodiazepines 12:38: 00 DNR N Final Performed by:Hilary Segura ()[address] [place] [address] Alphahydroxyalpraz olam 12:38: 00 DNR ng/mL N Final Performed by:Hilary Segura ()[address] [place] [address] medMATCH aOH alprazolam 12:38: 00 DNR N Final Performed by:Hilary Segura ()[address] [place] [address] Alphahydroxymidazo montalvo 12:38: 00 DNR ng/mL N Final Performed by:Hilary Segura ()[address] [place] [address] medMATCH aOH midazolam 12:38: 00 DNR N Final Performed by:Hilary Segura ()[address] [facility] [[email or web address] [address] Alphahydroxytriazo montalvo 12:38: 00 DNR ng/mL N Final Performed by:Hilary MarchLc Segura ()[address] [facility] [place] [address] medMATCH aOH triazolam 12:38: 00 DNR N Final Performed by:Hilary MarchLc Segura ()[address] [place] [address] Aminoclonazepam 12:38: 00 DNR ng/mL N Final Performed by:Hilary MarchLc Segura ()[address] [place] [address] medMATCH Aminoclonazepam 12:38: 00 DNR N Final Performed by:Hilary Segura ()[address] [place] [address] Hydroxyethylfluraz epam 12:38: 00 DNR ng/mL N Final Performed by:Hilary Segura ()[address] [facility] [place] [address] medMATCH [place],Et flurazepam 12:38: 00 DNR N Final Performed by:Hilary Segura ()[address] [facility] [[email or web address] [address] Lorazepam 12:38: 00 DNR ng/mL N Final Performed by:Hilary villaest JoaquimLc Segura ()[address] [facility] [place] [address] medMATCH Lorazepam 12:38: 00 DNR N Final Performed by:Hilary MarchLc Segura ()[address] [place] [address] Nordiazepam 12:38: 00 DNR ng/mL N Final Performed by:Hilary Segura ()[address] [place] [address] medMATCH Nordiazepam 12:38: 00 DNR N Final Performed by:Hilary Segura ()[address] [place] [address] Oxazepam 12:38: 00 DNR ng/mL N Final Performed by:Hilary Segura ()[address] [place] [address] medMATCH Oxazepam 12:38: 00 DNR N Final Performed by:Hilary Segura ()[address] [place] [address] Temazepam 12:38: 00 DNR ng/mL N Final Performed by:Hilary Segura ()[address] [place] [address] medMATCH Temazepam 12:38: 00 DNR N Final Performed by:Hilary Segura ()[address] [place] [address] Benzodiazepines Comments 12:38: 00 DNR N Final Performed by:Hilary Segura ()[address] [place] [address] Buprenorphine 12:38: 00 NEGATIVE ng/mL <5 Final Performed by:Hilary Segura ()[address] [place] [address] medMATCH Buprenorphine 12:38: 00 DNR N Final Performed by:Hilary Segura ()[address] [place] [address] Buprenorphine 12:38: 00 DNR ng/mL N Final Performed by:Hilary Segura ()[address] [place] [address] medMATCH Buprenorphine 12:38: 00 DNR N Final Performed by:Hilary Segura ()[address] [place] [address] Norbuprenorphine 12:38: 00 DNR ng/mL N Final Performed by:Hilary Segura ()[address] [place] [address] medMATCH Norbuprenorphine 12:38: 00 DNR N Final Performed by:Hilary Segura ()[address] [place] [address] Naloxone 12:38: 00 DNR ng/mL N Final Performed by:Hilary Segura ()[address] [place] [address] medMATCH Naloxone 12:38: 00 DNR N Final Performed by:Hilary Segura ()[address] [place] [address] Buprenorphine Comments 12:38: 00 DNR N Final Performed by:Hilary Segura ()[address] [place] [address] Cocaine Metabolite 12:38: 00 POSITIVE ng/mL <150 A Final Performed by:Hilary Segura ()[address] [place] [address] medMATCH Cocaine Metab 12:38: 00 DNR N Final Performed by:Hilary Segura ()[address] [place] [address] Benzoylecgonine 12:38: 00 148 ng/mL <100 H Final Performed by:Hilary Segura ()[address] [place] [address] medMATCH Benzoylecgonine 12:38: 00 DNR N Final Performed by:Hilary Segura ()[address] [place] [address] Cocaine Comments 12:38: 00 SEE COMMENT Final See Cocaine Not es, LDT NotesPerformed by:Marti Segura ()[address] [place] [address] Acetylmorphine 12:38: 00 NEGATIVE ng/mL <10 Final Performed by:Hilary Segura ()[address] [place] [address] medMATCH 6 Acetylmorphine 12:38: 00 DNR N Final Performed by:Hilary Segura ()[address] [facility] [place] [address] Acetylmorphine 12:38: 00 DNR ng/mL N Final Performed by:Hilary Segura ()[address] [facility] [[email or web address] [address] medMATCH 6 Acetylmorph 12:38: 00 DNR N Final Performed by:Hilary Segura ()[address] [facility] [[email or web address] [address] Heroin Metab Comments 12:38: 00 DNR N Final Performed by:Hilary Segura ()[address] [facility] [[email or web address] [address] Marijuana Metabolite 12:38: 00 NEGATIVE ng/mL <20 Final Performed by:Hilary Segura ()[address] [facility] [[email or web address] [address] medMATCH Marijuana Metab 12:38: 00 DNR N Final Performed by:Hilary Segura ()[address] [place] [address] Marijuana Metabolite 12:38: 00 DNR ng/mL N Final Performed by:Hilary Segura ()[address] [place] [address] medMATCH Marijuana Metab 12:38: 00 DNR N Final Performed by:Hilary Segura ()[address] [place] [address] Marijuana Comments 12:38: 00 DNR N Final Performed by:Hilary Sgeura ()[address] [place] [address] MDMA 12:38: 00 NEGATIVE ng/mL <500 Final Performed by:Hilary Segura ()[address] [place] [address] medMATCH MDMA 12:38: 00 DNR N Final Performed by:Hilary Segura ()[address] [place] [address] MDA 12:38: 00 DNR ng/mL N Final Performed by:Hilary Segura ()[address] [place] [address] medMATCH MDA 12:38: 00 DNR N Final Performed by:Hilary Segura ()[address] [place] [address] MDMA 12:38: 00 DNR ng/mL N Final Performed by:Hilary Segura ()[address] [place] [address] medMATCH MDMA 12:38: 00 DNR N Final Performed by:Hilary Segura ()[address] [place] [address] MDMA Comments 12:38: 00 DNR N Final Performed by:Hilary Segura ()[address] [place] [address] Opiates 12:38: 00 NEGATIVE ng/mL <100 Final Performed by:Hilary Segura ()[address] [place] [address] medMATCH Opiates Oct-26 -2024 12:38: 00 DNR N Final Performed by:Hilary Segura ()[address] [place] [address] Codeine 12:38: 00 DNR ng/mL N Final Performed by:Hilary Segura ()[address] [place] [address] medMATCH Codeine 12:38: 00 DNR N Final Performed by:Hilary Segura ()[address] [place] [address] Hydrocodone 12:38: 00 DNR ng/mL N Final Performed by:Hilary Segura ()[address] [facility] [[email or web address] [address] medMATCH Hydrocodone 12:38: 00 DNR N Final Performed by:Hilary Segura ()[address] [facility] [[email or web address] [address] Hydromorphone 12:38: 00 DNR ng/mL N Final Performed by:Hilary Segura ()[address] [facility] [[email or web address] [address] medMATCH Hydromorphone 12:38: 00 DNR N Final Performed by:Hilary Segura ()[address] [facility] [[email or web address] [address] Morphine 12:38: 00 DNR ng/mL N Final Performed by:Hilary Segura ()[address] [facility] [[email or web address] [address] medMATCH Morphine 12:38: 00 DNR N Final Performed by:Hilary Segura ()[address] [facility] [[email or web address] [address] Norhydrocodone 12:38: 00 DNR ng/mL N Final Performed by:Hilary Segura ()[address] [place] [address] medMATCH Norhydrocodone 12:38: 00 DNR N Final Performed by:Hilary Segura ()[address] [place] [address] Opiates Comments 12:38: 00 DNR N Final Performed by:Hilary Segura ()[address] [place] [address] Oxycodone 12:38: 00 NEGATIVE ng/mL <100 Final Performed by:Hilary Segura ()[address] [place] [address] medMATCH Oxycodone 12:38: 00 DNR N Final Performed by:Hilary Segura ()[address] [place] [address] Noroxycodone 12:38: 00 DNR ng/mL N Final Performed by:Hilary Segura ()[address] [place] [address] medMATCH Noroxycodone 12:38: 00 DNR N Final Performed by:Hilary Segura ()[address] [place] [address] Oxycodone 12:38: 00 DNR ng/mL N Final Performed by:Hilary Segura ()[address] [place] [address] medMATCH Oxycodone 12:38: 00 DNR N Final Performed by:Hilary villaest Philippe Segura ()[address] [place] [address] Oxymorphone 12:38: 00 DNR ng/mL N Final Performed by:Hilary villaest TPACKEllie Segura ()[address] [place] [address] medMATCH Oxymorphone 12:38: 00 DNR N Final Performed by:Hilary Segura ()[address] [place] [address] Oxycodone Comments 12:38: 00 DNR N Final Performed by:Hilary Segura ()[address] [place] [address] Creatinine 12:38: 00 340.8 mg/dL > or = 20.0 Final Performed by:Marti Segura ()[address] [place] [address] Specific [place] 12:38: 00 DNR N Final Performed by:Hilary Segura ()[address] [place] [address] pH 12:38: 00 7.6 4.5-9.0 Final Performed by:Hilary Segura ()[address] [place] [address] Oxidant 12:38: 00 NEGATIVE mcg/mL <200 Final Performed by:Hilary Segura ()[address] [place] [address] Abnormal Specimen Validity Test: 12:38: 00 DNR N Final Performed by:Hilary Segura ()[address] [place] [address] Panel Description: DRUG MONITOR, FENTANYL, QN, U RINE Final Fentanyl 12:38: 00 34.7 ng/mL <0.5 H Final Performed by:Hilary Segura ()[address] [place] [address] medMATCH Fentanyl 12:38: 00 DNR N Final Performed by:Hilary Segura ()[address] [facility] [place] [address] Norfentanyl 12:38: 00 >500.0 ng/mL <0.5 H Final Performed by:Hilary Segura ()[address] [place] [address] medMATCH Norfentanyl 12:38: 00 DNR N Final Performed by:Hilary RevTraxEllie Segura ()[address] [place] [address] Fentanyl Comments 12:38: 00 SEE COMMENT Final See Fentanyl No tiffani, LDT NotesPerformed by:Bag of IceEllie Segura ()[address] [place] [address] Panel Description: DRUG MONITORING TEMPLATE Hakan jaramillo [...] analytical performance characteristics have been determined by [employer]. It has not been cleared or approved by the FDA. This assay has been validated pursuant to the CLIA regulations and is used for clinical purposes. Healthcare Providers needing Interpretation assistance, please contact us at [phone] ( ) M-F, 8am to 10pm ESTPerformed by:[employer] ([place])[address] [place] [address] Patient Historical Report 12:38: 00 DNR N Final Performed by:Hilary [place] ([place])[address] [facility] [place] [address] Advance Directives Directive Yes / No Effective [...] OFFICE O/P NEW MOD 45-59 MIN [facility], [address], [place], [id number], [place] tel:[phone] [facility] Wm Physical (chief complaint) Provider's note (chief complaint) Body mass index [BMI] 38.0-38.9, adultTobacco useOpioid dependence with withdrawalSti mulant Use Disorder, Severe, CocaineImpact ed cerumen, bilateralEnco unter for adult annual physical exam w/ abnormal findingObesit yHypertension Onyema Jim chavez. [address] [place] [address], [id number] [address], [place], [id number] , . tel:[phone] Referring Provider: Riana Cristobal, [address] [place] [address] [id number], [address]. tel:[phone] Family History Family Member Type Diagnosis Age At Onset Mother Problem Hypertension Mother Problem Alive and well Father Problem Diabetes mellitus Mother Problem Diabetes mellitus Payers Payer name Insurance type Covered republican ID Authorkodaka chance(s) Healthy Blue CI [id number] Social History Type Description Quantity Date Captured [...] Mental Status Date Cognitive Assessment Orientation - [place] ed to time, place, person, situation. Patient Care Teams Name Effective Dates (start - stop) Status Members No Information
[2024-09-28 08:38] LABS: Hematocrit 44.5 % (42.0-52.0); Hemoglobin 15.2 g/dL (14.0-18.0); Immature Granulocyte Percent A 0.7 % (0-0.5); Lymphocytes Absolute Auto 1.55 K/mm3 (0.9-3.2); Mean Corpuscular HGB Conc 34.2 g/dl (32-36); Mean Corpuscular Hemoglobin 29.7 pg (26-34); Mean Corpuscular Volume 86.9 fl (80-100); Nucleated Red Blood Cells Absolute Auto 0.000 K/mm3 (0.0-0.012); Nucleated Red Blood Cells Perc 0.0 % (0.0-0.2); Platelet Count Result 230 k/mm3 (150-375); Red Blood Count 5.12 M/mm3 (4.6-6.20); White Blood Count 5.7 K/mm3 (4.5-10.0)
[2024-09-28] MEDS: MICONAZOLE NITRATE 2% CREAM 30 GM TUBE 1 APPLIC TOPICAL (08:55)
[2024-09-28] MEDS: NEOMYCIN/POLYMYXIN/BACITRACIN OINTMENT PACKET 1 PACKET TOPICAL (08:55)
[2024-09-28] MEDS: SODIUM CHLORIDE 0.9% IV 1,000 ML 999 ML IV CONT (09:10)
[2024-09-28 09:13] LABS: Alanine Aminotransferase 24 U/L (6-50); Albumin Level 4.2 g/dL (3.5-5.1); Alkaline Phosphatase 83 U/L (38-126); Anion Gap 5 mmol/L (4-12); Aspartate Amino Transferase 30 U/L (17-59); Bilirubin,Total 0.8 mg/dL (0.2-1.3); Blood Urea Nitrogen 14 mg/dL (9-20); Calcium 9.1 mg/dL (8.4-10.2); Carbon Dioxide 25 mmol/L (22-30); Chloride 104 mmol/L (98-107); Estimated CRCL calculation 121 ml/min; Estimated Glomerular Filt Rate > 60; Glucose 385 mg/dL (65-110); Potassium 4.6 mmol/L (3.4-5.0); Sodium 134 mmol/L (137-145); Total Protein 7.8 g/dL (6.3-8.2)
[2024-09-28 09:50] VITALS: BP 181/115; PULSE 73; RESP 18; O2SAT 100
[2024-09-28] MEDS: INSULIN ASPART (*BKC) 100 UNITS/ML 6 UNITS SUB-Q (09:52)
[2024-09-28 09:59] LABS: Beta-Hydroxybutyrate/Acetoace. 0.19 mmol/L (0.02-0.27)
[2024-09-28] MEDS: PHENAZOPYRIDINE HCL 100 MG TABLET PO (10:14)
[2024-09-28 10:16] VITALS: BP 179/115; PULSE 70; RESP 20; O2SAT 98
== END 2024-09-28 10:30 | disposition home or self-care (01) ==
PROVIDERS: Emergency Provider Student in an Organized Health Care Education/Training Program
DX: N47.6 Balanoposthitis (principal); E11.65 Type 2 diabetes mellitus with hyperglycemia; R81 Glycosuria; I10 Essential (primary) hypertension; R30.0 Dysuria; R35.0 Frequency of micturition; G47.30 Sleep apnea, unspecified; F17.290 Nicotine dependence, other tobacco product, uncomplicated
CPT/HCPCS: 36415; 74177; 80053; 81003; 82010; 82948; 85025; 96360; 99284; A9270; J1815; J7030; Q9967

== ENCOUNTER 2025-01-26 19:18 | Emergency (ER) | payer OTHER, MEDICAID, SELFPAY ==
[2025-01-26 19:43] VITALS: BP 184/102; PULSE 83; RESP 20; TEMP 36.1; O2SAT 96
[2025-01-26 22:09] VITALS: BP 184/110; PULSE 88; RESP 20; O2SAT 98
[2025-01-26 22:15] VITALS: BP 185/111; PULSE 84; RESP 18; O2SAT 100
[2025-01-26 22:30] VITALS: BP 182/107; PULSE 77; RESP 18; O2SAT 100
[2025-01-26 23:00] VITALS: BP 174/107; PULSE 80; RESP 18; O2SAT 94
[2025-01-26 23:30] VITALS: BP 172/113; PULSE 84; RESP 20; O2SAT 97
[2025-01-27] VITALS: BP 167/75; PULSE 75; RESP 18; O2SAT 95
[2025-01-27 00:30] VITALS: BP 148/76; PULSE 73; RESP 20; O2SAT 97
--- NOTE | 2025-01-27 00:57 | ED.GENADULT ---
HPI - General Adult General Chief complaint: Recheck/Abnormal Lab/Rx Stated complaint: htn Time Seen by Provider: 01/27/25 00:36 History of Present Illness HPI narrative: patient is a 49-year-old gentleman who presents emergency department with chief complaint of hypertension. Patient reports that he is out of his antihypertensives and reports that his blood pressures been running elevated. The patient reports that he has no chest pain no shortness of breath Related Data Home Medications ?Medication ?Instructions ?Recorded ?Confirmed ?Last Taken ?Type alendronate 70 mg-cholecalciferol 1 tablet PO WEEKLY 09/11/19 09/11/19 09/10/19 History (vitamin D3) 2,800 unit tablet amlodipine 5 mg tablet 5 mg PO DAILY 09/11/19 09/11/19 09/11/19 History bupropion HCl 100 mg tablet 100 mg PO DAILY 09/11/19 09/11/19 09/11/19 History cetirizine 10 mg tablet (Zyrtec) 10 mg PO DAILY 09/11/19 09/11/19 09/11/19 History famotidine 20 mg tablet (Pepcid) 20 mg PO BID 09/11/19 09/11/19 09/11/19 History Allergies Allergy/AdvReac Type Severity Reaction Status Date / Time No Known Allergies Allergy Verified 01/26/25 19:42 Review of Systems Review of Systems: A 10 system review of systems was completed on the patient and is negative except for what is stated in the HPI. Nursing and ancillary documentation was reviewed. PMFSH Past Medical History Medical History Diabetes mellitus Sleep apnea Hypertension Surgical History Surgical History Hx of chest tube placement No pertinent past surgical history Family History Family History Father Chronic obstructive pulmonary disease Mother Hypertension Diabetes mellitus Social History Social History Smoking status: Light tobacco smoker Tobacco type: cigars Second hand tobacco smoke exposure: Yes Additional smoking assessment comments: 1-2 a week but not consistant Alcohol intake: never Substance use: never Substance use type: does not use Living arrangements: with family Occupation/Education: occupation 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 HEAD: Normocephalic, atraumatic. EYES: PERRLA and EOMI. ENT: Nares clear, no rhinorrhea or epistaxis. Mucous membranes moist. NECK: Supple. CHEST: Clear to auscultation. No respiratory distress. HEART: Regular rate and rhythm. No murmur heard. Normal peripheral pulses. ABDOMEN: Soft, nontender, nondistended, normal active bowel sounds. EXTREMITIES: Normal range of motion. No edema. SKIN: Warm, dry, no rash. NEURO: No focal deficits. Alert and oriented x3. PSYCH: Normal mood and affect. Course Vital Signs Vital signs: Vital Signs Temperature 36.1 C L 01/26/25 19:43 Pulse Rate 83 01/26/25 19:43 Respiratory Rate 20 01/26/25 19:43 Blood Pressure 184/102 H 01/26/25 19:43 Pulse Oximetry 96 01/26/25 19:43 Temperature 36.1 C L 01/26/25 19:43 Pulse Rate 88 01/26/25 22:09 Respiratory Rate 20 01/26/25 22:09 Blood Pressure 184/110 H 01/26/25 22:09 Pulse Oximetry 98 01/26/25 22:09 Medical Decision Making MDM Narrative Medical decision making narrative: patient shows no signs hypertensive crisis no focal neurological deficits no chest pain or shortness of breath. Patient's blood pressure did come down in the emergency department the 160s patient will be given a dose of amlodipine in the emergency department and given a prescription for amlodipine patient will be given information for local primary care providers Vital Signs Vital Signs: Vital Signs Temperature 36.1 C L 01/26/25 19:43 Pulse Rate 83 01/26/25 19:43 Respiratory Rate 20 01/26/25 19:43 Blood Pressure 184/102 H 01/26/25 19:43 Pulse Oximetry 96 01/26/25 19:43 Temperature 36.1 C L 01/26/25 19:43 Pulse Rate 88 01/26/25 22:09 Respiratory Rate 20 01/26/25 22:09 Blood Pressure 184/110 H 01/26/25 22:09 Pulse Oximetry 98 01/26/25 22:09 Discharge Plan Discharge Clinical Impression: Hypertension Patient Disposition: Home Condition: Stable Instructions: Antibiotic Form, Hypertension (ED) Patient Language: Burkinan Prescriptions: New amlodipine 5 mg tablet 5 mg PO DAILY Qty: 30 0RF No Action phenazopyridine [Pyridium] 100 mg tablet 100 mg PO TID PRN (Reason: pain) Qty: 5 0RF clotrimazole 1 % lotion 1 applic topical BID 14 Days Qty: 30 0RF Rx Instructions: apply to glans of penis Triple Antibiotic 3.5mg-400 unit- 5,000 unit/gram ointment 1 applic topical QID Qty: 14 0RF Rx Instructions: apply to penis amlodipine 5 mg tablet 5 mg PO DAILY 30 Days Qty: 30 0RF (DME) lancets [Accu-Chek Softclix Lancets] Misc See Rx Instructions .Route Qty: 100 0RF Rx Instructions: As directed (DME) insulin syringe-needle U-100 0.3 mL 29 gauge x 1/2 syringe See Rx Instructions .Route Qty: 100 0RF Rx Instructions: As directed insulin aspart U-100 100 unit/mL solution 6 unit subcut TID Qty: 10 0RF Rx Instructions: with meals (DME) blood sugar diagnostic Strip See Rx Instructions .Route Qty: 30 0RF Rx Instructions: As directed amlodipine 5 mg tablet 5 mg PO DAILY 30 Days Qty: 30 0RF clotrimazole 1 % lotion 1 applic topical BID 14 Days Qty: 30 0RF insulin aspart U-100 100 unit/mL solution 6 unit subcut TID Qty: 10 0RF Rx Instructions: with meals phenazopyridine [Pyridium] 100 mg tablet 100 mg PO TID PRN (Reason: pain) Qty: 5 0RF Rx Instructions: rec'd first dose in ED Triple Antibiotic 3.5mg-400 unit- 5,000 unit/gram ointment 1 applic topical QID Qty: 14 0RF (DME) blood sugar diagnostic Strip See Rx Instructions .Route Qty: 50 0RF Rx Instructions: As directed (DME) insulin syringe-needle U-100 0.3 mL 29 gauge syringe See Rx Instructions .Route Qty: 100 0RF Rx Instructions: As directed (DME) lancets [Accu-Chek Softclix Lancets] Misc See Rx Instructions .Route Qty: 100 0RF Rx Instructions: As directed cetirizine [Zyrtec] 10 mg Tablet 10 mg PO DAILY amlodipine 5 mg Tablet 5 mg PO DAILY bupropion HCl 100 mg Tablet 100 mg PO DAILY famotidine [Pepcid] 20 mg Tablet 20 mg PO BID alendronate-vitamin D3 70 mg- 2,800 unit Tablet 1 tablet PO WEEKLY Rx Instructions: on sunday (DME) lancets [Accu-Chek Softclix Lancets] Misc See Rx Instructions .ROUTE .MEDSUPPLY Qty: 50 0RF Rx Instructions: As directed (DME) lancets [BD Ultra Fine Lancets] 33 gauge misc See Rx Instructions .ROUTE .MEDSUPPLY Qty: 100 0RF Rx Instructions: As directed (DME) OneTouch Verio test strips Strip Qty: 10 9RF Rx Instructions: As Directed (DME) insulin syringe-needle U-100 [BD Insulin Syringe] 1 mL 29 gauge x 1/2 Syringe Qty: 1 0RF Rx Instructions: As Directed insulin aspart U-100 [Novolog U-100 Insulin aspart] 100 unit/mL Solution 6 unit SUBCUT TIDWM Qty: 10 0RF (DME) insulin syringes (disposable) 1 mL syringe See Rx Instructions .ROUTE .MEDSUPPLY Qty: 500 0RF Rx Instructions: As directed Follow-up/Referrals: PHYSICIAN,MOLECULAR MODELER [Primary Care Provider, Internal Medicine] Desiree Silver DO [Physician, Family Practice] Time of Disposition: 01:03
[2025-01-27 01:00] VITALS: BP 169/102; PULSE 76; RESP 20; O2SAT 98
== END 2025-01-27 01:31 | disposition home or self-care (01) ==
LOC: ANHED 01-27 01:07
PROVIDERS: Emergency Provider Emergency Medicine
DX: I10 Essential (primary) hypertension (principal); T46.5X6A Underdosing of other antihypertensive drugs, initial encounter; Z91.148 Patient's other noncompliance with medication regimen for other reason; E11.9 Type 2 diabetes mellitus without complications; G47.30 Sleep apnea, unspecified; F17.210 Nicotine dependence, cigarettes, uncomplicated; Z79.899 Other long term (current) drug therapy; Z79.4 Long term (current) use of insulin
CPT/HCPCS: 99283; A9270